=== PATIENT | female | born 1940 | race Caucasian/White ===

== ENCOUNTER → 2016-04-30 | Outpatient (CLI) | payer MEDICARE, BC ==
[2015-02-21 11:00] VITALS: BP 146/66
[~2016-04-30] MED LIST: ATOR20TA58 PO; CHOL10003 PO; CYCL5TAB PO; Cyclobenzaprine Hcl PO; HYDR-2762 PO; IOHEXOL 180 MG/ML 10 ML VIAL. ONE; LEVO750T31 PO; LIDO700A4 TP; LISI10TA2 PO; METH5TAB2 PO; METO-269 PO; METO10TA81 PO; OMEP40CA5 PO; OXYC10TA32 PO; Oxycodone Hcl/Acetaminophen PO; SENN1TAB29 PO; SERT25TA4 PO; ZOLP5TAB4 PO; methylPREDNISolone ACETATE 40 MG/ML VIAL. ONE; methylPREDNISolone ACETATE 80 MG/ML VIAL. ONE
--- NOTE | 2016-05-01 00:14 | PAIN ---
DATE OF SERVICE: 04/30/2016 DIAGNOSES: Lumbar radiculopathy with lumbar degenerative disk disease. HISTORY OF PRESENT ILLNESS: This patient is a 76-year-old female who returns for followup status post lumbar epidural steroid injection x 1. The patient reports she did very well, this was on 04/05/2016, with about 50% improvement and her legs are doing much better, but she still has some pain in the low back itself. The patient reports no new motor or sensory deficits, no new bowel or bladder incontinence. She is increasing her activity with much greater ease and comfort, she is sleeping better at night and feels significantly improved, although still some pain left, about 4 on a scale of 10, describes it as an irritable pain that is irritating in the low back with aching and dull sensation as well as. Occasional radiation to the lower extremities, mostly in the lateral anterior thighs, but again only occasionally. PHYSICAL EXAMINATION: VITAL SIGNS: The patient's blood pressure is 142/67, pulse 72, respirations 18, temperature 97.2 degrees Fahrenheit, height is 5 feet 7 inches, weight is 164 pounds. GENERAL: The patient is awake, alert, oriented, appropriate, very pleasant demeanor. HEENT: Head shows normocephalic, atraumatic. Extraocular movements are intact and symmetrical. Oral cavity, mucous membranes are moist and pink. Dentition is intact. NECK: Shows anterior throat supple without palpable lymphadenopathy noted. Swallow reflex is symmetrical. Neck shows full rotation and motion of cervical spine, both laterally as well as extension and flexion without significant difficulty. CHEST: Shows normal on inspection. Breath sounds are clear to auscultation bilaterally. HEART: Shows S1 and S2 clear. ABDOMEN: Soft, nontender, nondistended. No palpable organomegaly. No rebound or guarding demonstrated. BACK: Shows spine grossly midline. Slight exaggeration of thoracic kyphosis but normal appearing lumbar lordotic curvature. Lumbar paraspinous muscle shows some moderate tenderness with palpation bilaterally in the lower lumbar distribution, but only diffusely in the paraspinous musculature itself without radiation. No tenderness over the spinous processes, sacrum or sacroiliac regions with palpation. The patient shows good rotation and motion of lumbar spine, both laterally greater than 10 degrees right ____ as well as extension greater than 10 degrees, forward flexion 45 degrees without difficulty. EXTREMITIES: Lower extremities show deep tendon reflexes 1+ in the patellar and tendo calcaneus tendons are equal. Motor exam is strong with 5/5 dorsiflexion, extension, quadriceps and hamstring flexion and symmetrical. PLAN: Options were discussed with the patient at this time. The patient's old chart was reviewed as her current medication regimen and updated. Current review of systems updated today as well. We will plan on a second lumbar epidural steroid injection today with fluoroscopic guidance. Risks were again discussed including, but not limited to bleeding, infection, possibility of epidural hematoma and subsequent neurologic compromise, dural puncture, headaches, spinal cord and/or nerve damage, side effects of steroid medication and poor results regarding pain control. The patient understands and wishes to proceed. The patient will return to clinic in approximately 2 weeks for followup. She was counseled as to return appointment, activity level and side effects to be aware of. DIAGNOSIS: Lumbar radiculopathy with lumbar degenerative disk disease. PROCEDURES: Lumbar epidural steroid injection, translaminar approach at the L4-L5 level with fluoroscopic guidance under sterile prep and drape using local anesthetic. MEDICATIONS INJECTED: Depo-Medrol 120 mg plus 10 mL of preservative-free normal saline and 2 mL of Isovue contrast. CONDITION AT DISCHARGE: Stable. The patient tolerated the procedure well, had no complications. KACEY ALBERT MD DR: SALVATORE/randall JOB#: [id number] / [id number]
== END | disposition home or self-care (01) ==
LOC: PNCL 08:39
PROVIDERS: ATTEND Anesthesiology
DX: M51.16 Intervertebral disc disorders with radiculopathy, lumbar region (principal)
CPT/HCPCS: 62323; J1030; J1040

== ENCOUNTER → 2016-05-16 | Outpatient (CLI) | payer MEDICARE, BC ==
[2015-02-21 11:00] VITALS: BP 146/66
[~2016-05-16] MED LIST changes: +MELO-156 PO
--- NOTE | 2016-05-17 12:02 | PAIN ---
DATE OF SERVICE: 05/16/2016 DIAGNOSES: Lumbar radiculopathy with lumbar degenerative disk disease. HISTORY OF PRESENT ILLNESS: The patient is a 76-year-old female who returns for followup status post lumbar epidural steroid injection x 2. The patient reports about 50% improvement overall in the low back and bilateral lower extremities, somewhat more on the left leg today, but this can be both legs. The patient reports it is aching and dull pain much better after the last injection on 04/30/2016, but still having some significant pain across the low back into the lower extremities. The patient reports 4-5 on a scale of 10 at night and is a 0 on a scale of 10 currently. The patient reports it is dull and aching, again without radiation to posterior gluteus, posterior lateral thigh, lateral anterior thighs slightly more on the left currently than the right, but present bilaterally. PHYSICAL EXAMINATION: VITAL SIGNS: The patient's blood pressure 130/62, pulse 62, respirations 18, temperature 98.2 degrees Fahrenheit, weight is 173 pounds. GENERAL: The patient is awake, alert, oriented, appropriate, very pleasant demeanor. HEENT: Head shows normocephalic, atraumatic. Extraocular movements are intact and symmetrical. Oral cavity shows mucous membranes moist and pink. Dentition is intact. NECK: Shows anterior throat supple without palpable lymphadenopathy noted. Swallow reflex is symmetrical. Neck shows full rotational motion of the cervical spine without difficulty or tenderness. CHEST: Shows normal on inspection. Breath sounds clear to auscultation bilaterally. HEART: Shows S1 and S2 clear. ABDOMEN: Obese, soft, nontender, nondistended. No palpable organomegaly is noted. No rebound or guarding demonstrated. BACK: Shows spine grossly midline. Slight exaggeration of thoracic kyphosis, normal-appearing lordotic curvature of the lumbar spine. Lumbar paraspinous musculature is very firm and moderately tender throughout the upper, middle and lower distribution, but is well demarcated and symmetrical without evidence of atrophy, hypertrophy without trigger points, without radiation of pain. The patient shows good rotational motion, both laterally as well as extension and flexion without significant pain reported. No tenderness over the sacrum and sacroiliac regions with palpation. Lower extremities show deep tendon reflexes at 1+ in the patellar and tendo calcaneus tendons are symmetrical. Motor exam is strong with dorsiflexion, extension, quadriceps and hamstring flexion rated 5/5 and equal. Peripheral pulses are 1+ posterior tibial and dorsalis pedis pulses. No peripheral edema is noted bilaterally. Options were discussed with the patient and the patient's old chart was reviewed as her current medication regimen updated. Current review of systems updated today as well. We will proceed with a third lumbar epidural steroid injection today with fluoroscopic guidance. Risks were again discussed including, but not limited to bleeding, infection, possibility of epidural hematoma, subsequent neurologic compromise, dural puncture, headaches, spinal cord and/or nerve damage, side effects of steroid medication and poor results regarding pain control. The patient understands and wishes to proceed. The patient will return to clinic in approximately 2 weeks for followup. He was counseled on return appointment, activity level and side effects to be aware of. KACEY ALBERT MD DR: SALVATORE/randall JOB#: [id number] / [id number]
== END | disposition home or self-care (01) ==
LOC: PNCL 09:46
PROVIDERS: ATTEND Anesthesiology
DX: M51.16 Intervertebral disc disorders with radiculopathy, lumbar region (principal); E78.00 Pure hypercholesterolemia, unspecified; I10 Essential (primary) hypertension; Z90.49 Acquired absence of other specified parts of digestive tract; Z90.710 Acquired absence of both cervix and uterus; M19.90 Unspecified osteoarthritis, unspecified site; E11.9 Type 2 diabetes mellitus without complications; F17.200 Nicotine dependence, unspecified, uncomplicated
CPT/HCPCS: 62323; J1030; J1040

== ENCOUNTER 2016-06-24 21:11 | Emergency (ER) | payer MEDICARE, BC ==
[~2016-06-24] VITALS: Ht 160 cm; Wt 77.1 kg
[~2016-06-24 21:11] MED LIST changes: -IOHEXOL 180 MG/ML 10 ML VIAL. ONE; -ZOLP5TAB4 PO; +ZOLP5TAB5 PO; -methylPREDNISolone ACETATE 40 MG/ML VIAL. ONE; -methylPREDNISolone ACETATE 80 MG/ML VIAL. ONE
[2016-06-24 21:17] VITALS: BP 145/70
[2016-06-24 21:58] LABS: BASO % 0 % (0-3); EOS % 1 % (0-3); HEMATOCRIT 34.7 % (36.0-47.0); HEMOGLOBIN 11.6 g/dL (12.0-15.5); LYMPH # 1.7 x10^3/uL (1.0-4.8); LYMPH % 34 % (24-48); MEAN CORPUSCULAR HEMOGLOBIN 29 pg (25-35); MEAN CORPUSCULAR HGB CONC 34 g/dL (31-37); MEAN CORPUSCULAR VOLUME 87 fL (79-100); MONO % 7 % (0-9); NEUT % 57 % (31-73); PLATELET COUNT 199 x10^3/uL (140-400); RED BLOOD COUNT 3.98 x10^6/uL (3.50-5.40); RED CELL DISTRIBUTION WIDTH 16.5 % (11.5-14.5); WHITE BLOOD COUNT 4.9 x10^3/uL (4.0-11.0)
[2016-06-24 22:09] LABS: CALCIUM 9.9 mg/dL (8.5-10.1); CREATININE 0.8 mg/dL (0.6-1.0); GFR 69.7
[2016-06-24 22:14] LABS: ALBUMIN 3.3 g/dL (3.4-5.0); TOTAL BILIRUBIN 0.4 mg/dL (0.2-1.0); TOTAL PROTEIN 6.7 g/dL (6.4-8.2)
--- NOTE | 2016-06-24 23:18 | RAD ---
Right lower extremity venous Doppler: Reason for examination: Right lower leg pain with swelling. The right lower extremity venous system was evaluated from the common femoral and greater saphenous veins distally to the calf veins with grayscale imaging, color flow imaging and spectral analysis. There is partial compressibility of 1 of the peroneal veins distally suggesting nonocclusive thrombus. The remaining deep venous system showed no deep venous thrombosis. Note was made of a 3.8 x 3.1 x 1.2 centimeter fluid collection posterior to the knee probably representing a popliteal cyst. Impression: Partial nonocclusive thrombus in 1 of the distal peroneal veins. No other evidence of deep venous thrombosis. 3.8 x 03.1 x 1.2 centimeter fluid collection behind the knee probably representing a popliteal cyst. Electronically signed by: Brenna Sweeney MD (Jun 24, 2016 23:16:23)
--- NOTE | 2016-06-24 23:45 | PHYS DOC ---
Past Medical History Past Medical History: Cancer, Other Additional Past Medical Histor: Diabetic"diet controlled,"Hx Lung CA. Past Surgical History: Appendectomy, Cholecystectomy, Hysterectomy, Other Additional Past Surgical Histo: EGD,Lobe of R)lung removed for CA,Bilat knee replacement Alcohol Use: None Drug Use: None Adult General Chief Complaint Chief Complaint: LOWER EXTREMITY SWELLING HPI HPI Patient is a 76 year old female who complains of swelling of the right foot and ankle for about 5 days. She's never had this before. She did not injure her foot or ankle. She has no history of a blood clot. She can't think of anything that might have caused this. She saw her primary care physician who ordered a venous Doppler which is scheduled for Saturday that she does not want to wait until then, her swelling is bothering her. It feels like fluid sloshing around in her ankle. She's had no fever or chills. She has no history of gout. PCP Dr. Vincent Review of Systems Review of Systems Constitutional: Denies fever or chills [] Eyes: Denies change in visual acuity, redness, or eye pain [] HENT: Denies nasal congestion or sore throat [] Respiratory: Denies cough or shortness of breath [] Cardiovascular: Denies chest pain GI: Denies abdominal pain, nausea, vomiting, bloody stools or diarrhea [] : Denies dysuria or hematuria [] Musculoskeletal: Denies back pain or joint pain [] Integument: Denies rash or skin lesions [] Neurologic: Denies headache, focal weakness or sensory changes [] Current Medications Current Medications Current Medications Medications (Trade) Dose Ordered Sig/Silvio Start Time Stop Time Status Last Admin Dose Admin Rivaroxaban (Xarelto) 15 mg 1X ONCE 06/25/16 00:00 06/25/16 00:01 DC 06/25/16 00:05 15 MG Allergies Allergies Allergies Coded Allergies Type Severity Reaction Last Updated Verified Penicillins Allergy Intermediate 11/25/13 Yes tramadol Allergy Intermediate Tolerates Lortab/OxyContin at home 02/19/15 Yes Physical Exam Physical Exam Constitutional: Well developed, well nourished, no acute distress, non-toxic appearance. [] HENT: Normocephalic, atraumatic, bilateral external ears normal, nose normal. [ ] Eyes: conjunctiva normal, no discharge. [] Neck: Normal range of motion, no stridor. [] Cardiovascular:Heart rate regular rhythm, no murmur [] Lungs & Thorax: Bilateral breath sounds clear to auscultation [] Skin: Warm, dry, no erythema, no rash. [] Extremities: Left lower leg, ankle and foot unremarkable with no swelling. Right lower leg with no swelling or tenderness to palpation. Right ankle has a mild amount of swelling on the medial and lateral aspect. Mild swelling of the dorsum of the right foot. Skin color is normal without redness or bruising. No warmth. Neurologic: Alert and oriented X 3, normal motor function, normal sensory function, no focal deficits noted. [] Current Patient Data Vital Signs Vital Signs Date Time Temp Pulse Resp B/P Pulse Ox O2 Delivery O2 Flow Rate FiO2 06/24/16 21:17 99.6 83 16 145/70 93 Room Air 99.6 Lab Values Laboratory Tests Test 06/24/16 21:35 White Blood Count 4.9x10^3/uL (4.0-11.0) Red Blood Count 3.98x10^6/uL (3.50-5.40) Hemoglobin 11.6g/dL (12.0-15.5) L Hematocrit 34.7% (36.0-47.0) L Mean Corpuscular Volume 87fL (79-100) Mean Corpuscular Hemoglobin 29pg (25-35) Mean Corpuscular Hemoglobin Concent 34g/dL (31-37) Red Cell Distribution Width 16.5% (11.5-14.5) H Platelet Count 199x10^3/uL (140-400) Neutrophils (%) (Auto) 57% (31-73) Lymphocytes (%) (Auto) 34% (24-48) Monocytes (%) (Auto) 7% (0-9) Eosinophils (%) (Auto) 1% (0-3) Basophils (%) (Auto) 0% (0-3) Neutrophils # (Auto) 2.8x10^3uL (1.8-7.7) Lymphocytes # (Auto) 1.7x10^3/uL (1.0-4.8) Monocytes # (Auto) 0.4x10^3/uL (0.0-1.1) Eosinophils # (Auto) 0.1x10^3/uL (0.0-0.7) Basophils # (Auto) 0.0x10^3/uL (0.0-0.2) Erythrocyte Sedimentation Rate 22 (0-25) Sodium Level 144mmol/L (136-145) Potassium Level 4.0mmol/L (3.5-5.1) Chloride Level 108mmol/L (98-107) H Carbon Dioxide Level 25mmol/L (21-32) Anion Gap 11 (6-14) Blood Urea Nitrogen 13mg/dL (7-20) Creatinine 0.8mg/dL (0.6-1.0) Estimated GFR (Cockcroft-Gault) 69.7 BUN/Creatinine Ratio 16 (6-20) Glucose Level 115mg/dL (70-99) H Calcium Level 9.9mg/dL (8.5-10.1) Total Bilirubin 0.4mg/dL (0.2-1.0) Aspartate Amino Transferase (AST) 18U/L (15-37) Alanine Aminotransferase (ALT) 28U/L (14-59) Alkaline Phosphatase 84U/L (46-116) HZ-Giw-F-Type Natriuretic Peptide 345pg/mL (0-449) Total Protein 6.7g/dL (6.4-8.2) Albumin 3.3g/dL (3.4-5.0) L Albumin/Globulin Ratio 1.0 (1.0-1.7) Laboratory Tests 06/24/16 21:35 Laboratory Tests 06/24/16 21:35 EKG EKG 12-lead EKG read by me. Sinus rhythm. Heart rate 70. There are no acute ST or T wave changes indicative of ischemia or infarction. No STEMI. 8[] Radiology/Procedures Radiology/Procedures Venous Doppler right lower extremity read by the radiologist. Partial nonocclusive thrombus in one of the distal peroneal veins, no other evidence of DVT. [] Course & Med Decision Making Course & Med Decision Making Pertinent Labs and Imaging studies reviewed. (See chart for details) 76-year-old female presents with a several day history of right foot and ankle swelling. Evaluation does show a partially occluding thrombus in one of her right calf veins. She has no history of DVT in the past. I discussed the case with Dr. Gavin, taking calls for Dr. Vincent, and he recommended to start the patient on Xarelto. I discussed this with the patient and she is agreeable. She was given her first dose here in the ED and I prescribed a starter pack where she will start tomorrow morning. She is to follow up for recheck in the office in the next week or so. Note that I was not able to prescribe a starter pack through the prescription attached to the discharge instructions so I hand wrote a prescription for Xarelto starter pack, 15 mg twice a day for 21 days followed by 20 mg once a day and explained this dosing to the patient. [] Dragon Disclaimer Dragon Disclaimer This electronic medical record was generated, in whole or in part, using a voice recognition dictation system. Departure Departure Impression: Primary Impression: Deep vein thrombosis (DVT) of right lower extremity Disposition: 01 HOME, SELF-CARE Condition: STABLE Referrals: SRIKANTH VINCENT MD (PCP) Patient Instructions: Deep Vein Thrombosis Additional Instructions: Doppler of the right leg showed that you do have a small blood clot in one vein of the right leg that does not completely blocked the vein. I discussed with Dr. Gavin and he recommended that we start you on Xarelto, which is a blood thinner that we use for blood clots in the vein. You had your first dose here in the emergency department and your next dose is due 12 hours later. Follow the instructions on the starter pack. Call tomorrow for an appointment in the next 1-2 weeks to follow up and recheck with Dr. Vincent. Elevate your foot and leg when possible for swelling. GISELLE JOHNSON MD Jun 24, 2016 23:45
[2016-06-25] MEDS ORDERED: RIVAROXABAN 15 MG TABLET. PO ONE
--- NOTE | 2016-06-25 06:33 | EKG ---
[facility] [address] [place] [address] Test Date: 2016-06-24 Test Time: 21:48:28 Pat Name: IZABELLA BACON Department: Room: Gender: F Machine Dyer: : 1940 Requested By: GISELLE JOHNSON Order Number: [id number] Reading MD: Measurements Intervals [place] Rate: 70 P: 46 [place]: 204 QRS: 39 QRSD: 86 T: 15 QT: 374 QTc: 407 Interpretive Statements SINUS RHYTHM QRS(T) CONTOUR ABNORMALITY CONSIDER ANTEROSEPTAL MYOCARDIAL DAMAGE POSSIBLY ABNORMAL ECG RI6.01 No previous ECG available for comparison
== END 2016-06-25 00:16 | disposition home or self-care (01) ==
LOC: ER 21:11
DX: I82.401 Acute embolism and thrombosis of unspecified deep veins of right lower extremity (principal); E11.9 Type 2 diabetes mellitus without complications; Z96.653 Presence of artificial knee joint, bilateral; Z90.710 Acquired absence of both cervix and uterus; Z90.49 Acquired absence of other specified parts of digestive tract; Z79.01 Long term (current) use of anticoagulants; Z88.0 Allergy status to penicillin; Z88.6 Allergy status to analgesic agent
CPT/HCPCS: 36415; 80053; 83880; 85027; 85651; 93005; 93971; 99285-25

== ENCOUNTER → 2016-11-07 | Outpatient (CLI) | payer MEDICARE, BC ==
[~2016-11-07] MED LIST changes: -MELO-156 PO; +MELO7.5T29 PO; -OXYC10TA32 PO; +OXYC10TA45 PO
--- NOTE | 2016-11-07 13:58 | KCIC ---
Single view pelvis and two-view right hip dated 11/07/2016. No comparison available. Clinical indication: Pain. FINDINGS: Single AP view pelvis shows normal bony alignment. No displaced fracture. Mild hypertrophic change at both hip joints. Mild degenerative change of the bilateral SI joint and pubic symphysis. 2 views of right hip show normal bony alignment. No displaced fracture. No periostitis or bone destruction. Mild degenerative change of the right hip joint. IMPRESSION: 1. No acute radiographic abnormality. 2. Degenerative changes as described above. Electronically signed by: Dayron Shields MD (11/07/2016 1:55 PM) [facility]
== END | disposition home or self-care (01) ==
LOC: KCIC 12:47
PROVIDERS: ATTEND Family Medicine
DX: M16.11 Unilateral primary osteoarthritis, right hip (principal)
CPT/HCPCS: 73502

== ENCOUNTER → 2016-11-16 | Outpatient (CLI) | payer MEDICARE, BC ==
--- NOTE | 2016-11-16 13:55 | RAD ---
Indication follow-up. Grayscale color Doppler and spectral imaging was performed. Examination was targeted to the veins of the right lower extremity. Note is made of a previous examination 06/24/2016 definite demonstrating some clot in the calf. The common femoral, femoral and popliteal vessels appear normal. No thrombus was seen. The calf veins appeared normal on today's examination and no clot was seen in the peroneal vein on today's study. IMPRESSION: Negative right lower extremity venous analysis for DVT
== END | disposition home or self-care (01) ==
LOC: US 07:53
PROVIDERS: ATTEND Family Medicine
DX: I82.4Z1 Acute embolism and thrombosis of unspecified deep veins of right distal lower extremity (principal)
CPT/HCPCS: 93971

== ENCOUNTER → 2017-03-04 | Outpatient (CLI) | payer MEDICARE, BC ==
[~2017-03-04] MED LIST changes: +IOHEXOL 180 MG/ML 10 ML VIAL. ONE; +methylPREDNISolone ACETATE 40 MG/ML VIAL. ONE; +methylPREDNISolone ACETATE 80 MG/ML VIAL. ONE
--- NOTE | 2017-03-04 17:16 | PAIN ---
DATE OF SERVICE: 03/04/2017 DIAGNOSIS: Lumbar radiculopathy with lumbar degenerative disk disease. HISTORY OF PRESENT ILLNESS: The patient is a 77-year-old female who returns for followup status post lumbar epidural steroid injection x 1 on 02/13/2017. The patient did very well, about 70% improvement in the low back and bilateral lower extremities. The patient reports her left leg is still painful with some pain still in the low back radiating to the posterior gluteus, posterior lateral thigh, lateral anterior thigh and medial thigh on the left side, worse with walking, standing, changing positions, but better with sitting down or lying down. The patient reports it has been awakening her from sleep over the past few days, although initially was doing very well. Now, she has to reposition or takes pain medication, get out of bed, she is usually able to get back to sleep though. The patient reports the pain is a 7 on a scale of 10 at its worst, 5 on average, 2 at its least and is a 5 today. The patient reports it is shooting and becoming more severe in the left leg and low back and is off and on in intensity. PHYSICAL EXAMINATION: VITAL SIGNS: Today, the patient's blood pressure is 144/66, pulse 59, respirations are 18, temperature ____ degrees Fahrenheit. Height is 5 feet 3 inches, weighs 170 pounds. GENERAL: The patient is awake, alert, oriented, appropriate, very pleasant demeanor. HEENT: Head shows normocephalic, atraumatic. Extraocular movements are intact and symmetrical. Oral cavity: Mucous membranes moist and pink. Dentition is intact. NECK: Shows anterior throat supple without palpable lymphadenopathy noted. Swallow reflex is symmetrical. CHEST: Shows normal on inspection. Breath sounds are clear to auscultation bilaterally. HEART: Shows S1, S2 clear. No murmurs auscultated. ABDOMEN: Soft, nontender, nondistended. No palpable organomegaly is noted. No rebound or guarding demonstrated. BACK: Shows spine grossly in the midline. Normal appearing thoracic kyphosis and lumbar lordotic curvature. Lumbar paraspinous muscle shows symmetrical on inspection, with palpation shows some moderate tenderness bilaterally, but only in the middle and lower distribution of paraspinous muscles, only diffusely without radiation, without atrophy or hypertrophy. EXTREMITIES: The patient's lower extremities show deep tendon reflexes at 1+ in the patellar and tendo calcaneus tendons are equal. Motor exam is strong with 5/5 dorsiflexion, extension, quadriceps and hamstring flexion and symmetrical as well. Peripheral pulses are 1+ posterior tibial bilaterally. No peripheral edema is noted. Options were discussed with the patient. The patient's old chart was reviewed as her current medication regimen updated. Current review of systems updated today as well. We will proceed with a second in the series of lumbar epidural steroid injection today with fluoroscopic guidance. Risks were again discussed including, but not limited to bleeding, infection, possibility of epidural hematoma, subsequent neurologic compromise, dural puncture, headaches, spinal cord and/or nerve damage, side effects of steroid medication and poor results regarding pain control. The patient understands and wished to proceed. The patient will return to clinic in approximately 2 weeks for followup, was counseled on return appointment, activity level and side effects to be aware of. DIAGNOSIS: Lumbar radiculopathy with lumbar degenerative disk disease. PROCEDURES: Lumbar epidural steroid injection in translaminar approach at L4-L5 level using C-arm fluoroscopic guidance under sterile prep and drape using local anesthetic. MEDICATION INJECTED: A total of 120 mg Depo-Medrol plus 10 mL of preservative-free normal saline and 2 mL of Isovue for contrast. CONDITION AT DISCHARGE: Stable. The patient tolerated the procedure well, had no complications. KACEY ALBERT MD DR: SALVATORE/randall JOB#: [id number] / [id number]
== END | disposition home or self-care (01) ==
LOC: PNCL 08:04
PROVIDERS: ATTEND Anesthesiology
DX: M51.16 Intervertebral disc disorders with radiculopathy, lumbar region (principal); E78.00 Pure hypercholesterolemia, unspecified; M19.91 Primary osteoarthritis, unspecified site; E11.9 Type 2 diabetes mellitus without complications; F17.200 Nicotine dependence, unspecified, uncomplicated; Z98.890 Other specified postprocedural states; Z90.49 Acquired absence of other specified parts of digestive tract; Z90.710 Acquired absence of both cervix and uterus; Z88.0 Allergy status to penicillin; Z88.8 Allergy status to other drugs, medicaments and biological substances
CPT/HCPCS: 62323; J1030; J1040

== ENCOUNTER → 2017-03-18 | Outpatient (CLI) | payer MEDICARE, BC ==
--- NOTE | 2017-03-18 09:48 | PAIN ---
DATE OF SERVICE: 03/18/2017 DIAGNOSES: Lumbar radiculopathy with lumbar degenerative disk disease. HISTORY OF PRESENT ILLNESS: The patient is a 77-year-old female who returns for followup status post lumbar epidural steroid injections x 2, last seen 03/04/2017. The patient did very well initially, but the pain has returned. The patient had a 100% improvement for a few days after the injection, then the pain returned and then it went away again over the past 2 to 3 days. She reports it is "not too bad" today, still some pain in the low back and into the left lower extremity. The patient reports it is radiating from the low back and the posterior gluteus, posterolateral thigh, lateral anterior thigh, anterior medial thigh, medial lower leg bilaterally, worse on the left than the right. The patient reports a sharp, stabbing, radiating, becoming more unbearable, severe, but is on and off in its intensity. The patient reports she has been sleeping about 2 hours at a time because the pain has been awakening her, especially when she lies on her left side. The patient reports the pain is an 8 on a scale of 10 at its worst, a 5 on average and a 3 at its least, and is 3 today. The patient reports no new motor or sensory deficits, no new bowel or bladder incontinence or other complaints. She has been increasing her activity with greater ease and comfort, again much better for a few days, then beginning to return and then getting better once again just over the past several days prior to today's visit. PHYSICAL EXAMINATION: VITAL SIGNS: The patient's blood pressure 142/70, pulse 65, respirations 18, temperature 98.3 degrees Fahrenheit, weight is 172 pounds. GENERAL: The patient is awake, alert, oriented, appropriate, very pleasant demeanor. HEENT: Head shows normocephalic, atraumatic. Extraocular movements are intact, symmetrical. Oral cavity: Mucous membranes moist and pink. Dentition is intact. NECK: Shows anterior throat supple without palpable lymphadenopathy noted. Swallow reflex symmetrical. CHEST: Shows normal on inspection. Breath sounds clear to auscultation bilaterally. HEART: Shows S1, S2 clear. No murmurs auscultated. ABDOMEN: Soft, nontender, nondistended. No palpable organomegaly is noted. No rebound or guarding demonstrated. BACK: Shows spine grossly in the midline, slight exaggeration of thoracic kyphosis, some minor flattening of lumbar lordotic curvature. Lumbar paraspinous musculature shows symmetrical on inspection without atrophy or hypertrophy. No tenderness over the spinous processes, sacrum or sacroiliac regions. EXTREMITIES: The patient's lower extremities show deep tendon reflexes at 1+ in the patellar and tendo calcaneus tendons are equal. Motor exam is strong with 5/5 dorsiflexion, extension, quadriceps and hamstring flexion and equal and symmetrical. Peripheral pulses are 1+ posterior tibial. No peripheral edema is noted. Options were discussed with the patient. The patient's old chart was reviewed as her current medication regimen updated. Current review of systems updated today as well. We will proceed with a third in the series of lumbar epidural steroid injection today with fluoroscopic guidance. Risks were discussed including but not limited to bleeding, infection, possibility of epidural hematoma, subsequent neurologic compromise, dural puncture headaches, spinal cord and/or nerve damage, side effects of steroid medication and poor results regarding pain control. The patient understands and wished to proceed. The patient will return to clinic in approximately 2 weeks for followup. She was counseled on return appointment, activity level and side effects to be aware of. DIAGNOSES: Lumbar radiculopathy with lumbar degenerative disk disease. PROCEDURE: Lumbar epidural steroid injection, translaminar approach, at the L4-L5 level using C-arm fluoroscopic guidance under sterile prep and drape using local anesthetic. MEDICATION INJECTED: A total of 120 mg Depo-Medrol plus 10 mL of preservative-free normal saline and 2 mL of Isovue for contrast. CONDITION AT DISCHARGE: Stable. The patient tolerated the procedure well, had no complications. KACEY ALBERT MD DR: SALVATORE/randall JOB#: [id number] / [id number]
== END | disposition home or self-care (01) ==
LOC: PNCL 07:56
PROVIDERS: ATTEND Anesthesiology
DX: M51.16 Intervertebral disc disorders with radiculopathy, lumbar region (principal); Z90.710 Acquired absence of both cervix and uterus; Z90.49 Acquired absence of other specified parts of digestive tract; Z88.8 Allergy status to other drugs, medicaments and biological substances; Z88.0 Allergy status to penicillin; M19.90 Unspecified osteoarthritis, unspecified site; E78.00 Pure hypercholesterolemia, unspecified; Z96.653 Presence of artificial knee joint, bilateral; I10 Essential (primary) hypertension; E11.9 Type 2 diabetes mellitus without complications; Z88.6 Allergy status to analgesic agent
CPT/HCPCS: 62323; J1030; J1040

== ENCOUNTER → 2017-04-17 | Outpatient (CLI) | payer MEDICARE, BC | END | disposition home or self-care (01) | LOC: RAD 11:50 | DX: M48.061 Spinal stenosis, lumbar region without neurogenic claudication (principal); M47.897 Other spondylosis, lumbosacral region; I70.0 Atherosclerosis of aorta; I87.8 Other specified disorders of veins | CPT/HCPCS: 72100; 73521 ==

== ENCOUNTER → 2017-05-10 | Outpatient (CLI) | payer MEDICARE, BC | END | disposition home or self-care (01) | LOC: KCIC MRI 10:35 | DX: M51.27 Other intervertebral disc displacement, lumbosacral region (principal); M47.896 Other spondylosis, lumbar region | CPT/HCPCS: 72148 ==

== ENCOUNTER → 2017-05-22 | Outpatient (CLI) | payer MEDICARE, BC | END | disposition home or self-care (01) | LOC: KCIC US 14:22 | DX: M71.21 Synovial cyst of popliteal space [Baker], right knee (principal) | CPT/HCPCS: 93971 ==

== ENCOUNTER → 2017-09-18 | Outpatient (CLI) | payer MEDICARE, BC | END | disposition home or self-care (01) | LOC: ECHO 12:16 | DX: I82.813 Embolism and thrombosis of superficial veins of lower extremities, bilateral (principal); I35.1 Nonrheumatic aortic (valve) insufficiency; I10 Essential (primary) hypertension; E11.9 Type 2 diabetes mellitus without complications; E78.5 Hyperlipidemia, unspecified | CPT/HCPCS: 93306; 93970 ==

== ENCOUNTER → 2017-11-06 | Outpatient (CLI) | payer MEDICARE, BC | END | disposition home or self-care (01) | LOC: US 10:41 | DX: I87.2 Venous insufficiency (chronic) (peripheral) (principal); I10 Essential (primary) hypertension; E11.9 Type 2 diabetes mellitus without complications; E78.5 Hyperlipidemia, unspecified; Z87.891 Personal history of nicotine dependence | CPT/HCPCS: 93970 ==

== ENCOUNTER → 2018-02-25 | Outpatient (CLI) | payer MEDICARE, BC ==
[~2018-02-25] MED LIST changes: +LIDOCAINE 1% PF 2 ML VIAL. ONE; +ONDA4TAB7 PO
--- NOTE | 2018-02-25 14:24 | PAIN ---
DATE OF SERVICE: 02/25/2018 DIAGNOSIS: Lumbar radiculopathy with lumbar degenerative disk disease. HISTORY OF PRESENT ILLNESS: The patient is a 78-year-old female who returns for followup status post lumbar epidural steroid injections x 3, last seen 03/18/2017. The patient did very well with about 100% improvement for a few months and then about an 80% improvement until about 1-2 weeks ago. The patient reports the pain has returned in her low back as it was previously, in the bilateral lower extremities mostly in the posterior gluteus, posterior thighs, lateral thighs, anterior thighs with a burning pain. It is radiating, constant now, severe, stabbing. Describes as achy, sharp and shooting, rates it a 9 on a scale of 10 at its worst, 5 on average, 5 at its least and is a 5 today. The patient reports it is worse with standing and walking. Initially, she increased her distance walking, doing activities around the house, traveling with much greater ease and comfort, now the pain has again returned, these have become more uncomfortable for her, but she is still doing well overall. The patient reports no new motor or sensory deficits, no new bowel or bladder incontinence or other complaints. PHYSICAL EXAMINATION: VITAL SIGNS: The patient's blood pressure is 125/61, pulse 66, respirations 18, temperature 98.6 degrees Fahrenheit, height is 5 feet 3 inches, weight is 173 pounds. GENERAL: The patient is awake, alert, oriented, appropriate, very pleasant demeanor. HEENT: Head shows normocephalic, atraumatic. Extraocular movements are intact and symmetrical. Oral cavity: Mucous membranes moist and pink. Dentition intact. NECK: Shows anterior throat supple without palpable lymphadenopathy noted. Swallow reflex symmetrical. CHEST: Shows normal with inspection. Breath sounds clear to auscultation bilaterally. HEART: Shows S1, S2 clear. No murmurs auscultated. ABDOMEN: Soft, nontender, nondistended. No palpable organomegaly is noted. No rebound or guarding demonstrated. BACK: Shows spine grossly in the midline. Slight exaggeration of thoracic kyphosis, some minor flattening of lumbar lordotic curvature. Lumbar paraspinous muscle shows symmetrical on inspection and with palpation shows some moderate tenderness diffusely without radiation, without trigger points. The patient has good rotational motion of lumbar spine, both laterally as well as extension and flexion without significant difficulty or pain reported. No tenderness over the sacrum or sacroiliac regions. EXTREMITIES: Lower extremities show deep tendon reflexes 1+ in the patellar and tendo-calcaneus tendons are equal. Motor exam is strong with 5/5 dorsiflexion and extension, quadriceps and hamstring flexion and symmetrical as well. Peripheral pulses are 1+ posterior tibia. No peripheral edema is noted bilaterally. Options were discussed with the patient. The patient's old chart was reviewed as her current medication regimen updated. Current review of systems updated today as well. We will proceed with lumbar epidural steroid injections, the first in this series with fluoroscopic guidance. Risks were again discussed including, but not limited to bleeding, infection, possibility of epidural hematoma, subsequent neurological compromise, dural puncture, headaches, spinal cord and/or nerve damage, side effects of steroid medication and poor results regarding pain control. The patient understands and wished to proceed. The patient will return to clinic in approximately 2 weeks for followup, was counseled as to return appointment, activity level and side effects to be aware of. DIAGNOSIS: Lumbar radiculopathy with lumbar degenerative disk disease. PROCEDURE: Lumbar epidural steroid injection, translaminar approach, L4-L5 level using C-arm fluoroscopic guidance under sterile prep and drape using local anesthetic. MEDICATION INJECTED: A total of 120 mg Depo-Medrol plus 10 mL of preservative-free normal saline and 2 mL of Isovue for contrast. CONDITION AT DISCHARGE: Stable. The patient tolerated procedure well, had no complications. KACEY ALBERT MD DR: SALVATORE/randall JOB#: [id number] / [id number]
== END | disposition home or self-care (01) ==
LOC: PNCL 13:05
PROVIDERS: ATTEND Anesthesiology
DX: M51.16 Intervertebral disc disorders with radiculopathy, lumbar region (principal); Z88.0 Allergy status to penicillin; Z88.6 Allergy status to analgesic agent
CPT/HCPCS: 62323; J1030; J1040; Q9965

== ENCOUNTER → 2018-03-10 | Outpatient (CLI) | payer MEDICARE, BC ==
[~2018-03-10] MED LIST changes: -HYDR-2762 PO; +HYDR-2765 PO; -IOHEXOL 180 MG/ML 10 ML VIAL. ONE; -LIDOCAINE 1% PF 2 ML VIAL. ONE; -OXYC10TA45 PO; +OXYC10TA46 PO; -methylPREDNISolone ACETATE 40 MG/ML VIAL. ONE; -methylPREDNISolone ACETATE 80 MG/ML VIAL. ONE
--- NOTE | 2018-03-10 17:23 | KCIC ---
Bilateral digital screening mammograms: Reason for examination: Routine screening. New baseline. Interpretation was made with the benefit of CAD. The skin and nipples show no abnormalities. No abnormal axillary lymph nodes are seen. The breast parenchyma shows scattered fibroglandular density. (Breast density: Category B.) There are no dominant masses, suspicious calcifications or architectural distortions. Some benign appearing calcifications are present. Impression: No evidence of malignancy. Recommend routine screening. BI-RADS category 2: Benign "Our facility is accredited by the [employer] Mammography [employer]." This patient's information has been entered into a reminder system for the patient to be notified with the results of her examination and a target date for the next mammogram. Electronically signed by: Lillie Sweeney MD (03/10/2018 5:19 PM) [facility] [id number]
== END | disposition home or self-care (01) ==
LOC: KCIC MAMMO 11:56
PROVIDERS: ATTEND Family Medicine
DX: Z12.31 Encounter for screening mammogram for malignant neoplasm of breast (principal)
CPT/HCPCS: 77067

== ENCOUNTER → 2018-03-21 | Outpatient (CLI) | payer MEDICARE, BC ==
[~2018-03-21] MED LIST changes: +IOHEXOL 180 MG/ML 10 ML VIAL. ONE; +methylPREDNISolone ACETATE 40 MG/ML VIAL. ONE; +methylPREDNISolone ACETATE 80 MG/ML VIAL. ONE
--- NOTE | 2018-03-21 16:31 | PAIN ---
DATE OF SERVICE: 03/21/2018 DIAGNOSES: Lumbar radiculopathy with lumbar degenerative disk disease. HISTORY OF PRESENT ILLNESS: The patient is a 78-year-old female who returns for followup status post lumbar epidural steroid injection x 1. This series, the patient reports she did very well with about a 75% improvement, near 80% improvement initially. The pain has been returning now but on and off in intensity in the low back and the bilateral lower extremities. The patient reports right equal to left essentially. The patient reports the pain is now becoming more noticeable. It is a stabbing pain in the low back with tingling pain in the leg, sharp, radiating to bilateral posterolateral, anterior thighs, anterior medial thighs, medial lower legs, posterior gluteus and posterior thighs as well. The patient reports it is a 7 on a scale of 10 at its worse, 5 on average, 2 at its least and is a 5 today. The patient reports it occasionally wakes her from sleep, but not every night. Most nights, she sleeps fairly well. The patient reports no new motor or sensory deficits, no new bowel or bladder incontinence. She was initially increasing her distance walking, doing activities at home and traveling with greater ease and comfort. The patient reports no new motor or sensory deficits, no new bowel or bladder incontinence or other complaints. PHYSICAL EXAMINATION: VITAL SIGNS: Today, the patient's blood pressure 120/50, pulse 52, respirations are 18, temperature is 98.2 degrees Fahrenheit, height is 5 feet 3 inches, weight 170 pounds. GENERAL: The patient is awake, alert, oriented, appropriate, very pleasant demeanor. HEENT: Head shows normocephalic, atraumatic. Extraocular movements are intact and symmetrical. Oral cavity: Mucous membranes moist and pink. Dentition is intact. NECK: Shows anterior throat supple without palpable lymphadenopathy noted. Swallow reflex is symmetrical. CHEST: Shows normal on inspection. Breath sounds are clear to auscultation bilaterally. HEART: Shows S1, S2 clear. No murmurs auscultated. BACK: Shows spine grossly in the midline. Slight exaggeration of thoracic kyphosis and mild flattening of lumbar lordotic curvature. The patient's lumbar paraspinous musculature shows symmetrical on inspection, on palpation shows some moderate tenderness, but only diffusely with palpation. Good rotational motion, however, both laterally as well as extension and flexion without significant difficulty. EXTREMITIES: The patient's lower extremities show deep tendon reflexes at 1+ in the patella and tendo calcaneus tendons. Motor exam is strong with 5/5 dorsiflexion, extension, quadriceps and hamstring flexion is symmetrical. Peripheral pulses are 1+ posterior tibia. No peripheral edema is noted. Options were discussed with the patient. The patient's old chart was reviewed as her current medication regimen and updated. Current review of systems is updated today as well. We will proceed with a second in the series of lumbar epidural steroid injection today with fluoroscopic guidance. Risks were again discussed including, but not limited to bleeding, infection, possibility of epidural hematoma, subsequent neurological compromise, dural puncture headache, spinal cord and/or nerve damage, side effects of steroid medication and poor results regarding pain control. The patient understands and wished to proceed. The patient to return to clinic in approximately 2 weeks for followup. She was counseled as to her return appointment, activity level and side effects to be aware of. DIAGNOSES: Lumbar radiculopathy with lumbar degenerative disk disease. PROCEDURE: Lumbar epidural steroid injection, translaminar approach L4-L5 level using C-arm fluoroscopic guidance under sterile prep and drape using local anesthetic. MEDICATION INJECTED: A total of 120 mg Depo-Medrol plus 10 mL of preservative-free normal saline, 2 mL of Isovue for contrast. CONDITION AT DISCHARGE: Stable. The patient tolerated procedure well, had no complications. KACEY ALBERT MD DR: SALVATORE/randall JOB#: [id number] / [id number]
== END | disposition home or self-care (01) ==
LOC: PNCL 11:32
PROVIDERS: ATTEND Anesthesiology
DX: M51.16 Intervertebral disc disorders with radiculopathy, lumbar region (principal); Z88.0 Allergy status to penicillin; Z88.6 Allergy status to analgesic agent
CPT/HCPCS: 62323; J1030; J1040; Q9965

== ENCOUNTER → 2018-04-28 | Outpatient (CLI) | payer MEDICARE, BC ==
--- NOTE | 2018-04-28 17:54 | PAIN ---
DATE OF SERVICE: 04/28/2018 PROGRESS NOTE FOR PAIN CLINIC DIAGNOSES: Lumbar radiculopathy with lumbar degenerative disk disease. HISTORY OF PRESENT ILLNESS: The patient is a 78-year-old female who returns for followup status post lumbar epidural steroid injection x 2. The patient reports about 75% improvement overall and the first was about 80%, not quite as good as it was, but the patient reports still significant pain relief, increasing her activity with greater ease and comfort, walking for greater distances and sleeping better at night. It still awakens her sporadically from sleep at night, but not every night. The patient reports it is an 8 on a scale of 10 at its worst, anywhere from a 3 to an 8 on average and 1 at its least and is 5 today. The patient reports it is aching, sharp, shooting in the low back into the lower extremities bilaterally, posterior gluteus, posterior lateral thighs, lateral anterior thighs and medial lower legs. The patient reports on and off in intensity, better with sitting or lying down, worse with standing or walking. The patient reports no new motor or sensory deficits, no new bowel or bladder incontinence or other complaints. PHYSICAL EXAMINATION: VITAL SIGNS: The patient's blood pressure is 137/66, pulse 61, respirations 16, temperature 98.4 degrees Fahrenheit, height is 5 feet 3 inches and weight is 170 pounds. GENERAL: The patient is awake, alert, oriented, appropriate, very pleasant demeanor. HEENT: Head is normocephalic, atraumatic. Extraocular movements intact and symmetrical. Oral cavity: Mucous membranes moist and pink. Dentition is intact. NECK: Shows anterior throat supple without palpable lymphadenopathy noted. Swallow reflex symmetrical. LUNGS: Normal on inspection. Breath sounds clear to auscultation bilaterally. HEART: Shows S1, S2 clear. No murmurs auscultated. ABDOMEN: Soft, nontender, nondistended. No palpable organomegaly is noted. No rebound or guarding demonstrated. BACK: The patient's back shows spine grossly in the midline, normal appearing cervical lordotic curvature, increased thoracic kyphosis and some minor flattening of lumbar lordotic curvature. Lumbar paraspinous muscle shows symmetrical on inspection. On palpation, it shows some moderate tenderness diffusely bilaterally in the paraspinous musculature, but only diffusely without radiation. The patient has good rotational motion of lumbar spine without significant pain reported. EXTREMITIES: Lower extremities show deep tendon reflexes 1+ in the patellar and tendo calcaneus tendons. Motor exam is strong with 5/5 dorsiflexion, extension, quadriceps and hamstring flexion equal. Peripheral pulses are 1+ posterior tibial. No peripheral edema is noted. PLAN: Options were discussed with the patient. The patient's old chart was reviewed as her current medication regimen updated. Current review of systems updated today as well. We will proceed with a third in the series of lumbar epidural steroid injection today with fluoroscopic guidance. Risks were again discussed including, but not limited to bleeding, infection, possibility of epidural hematoma, subsequent neurologic compromise, dural puncture, headaches, spinal cord and/or nerve damage, side effects of steroid medication and poor results regarding pain control. The patient understands and wished to proceed. The patient will return to clinic in approximately 2 weeks for followup, was counseled as to return appointment, activity level and side effects to be aware of. DIAGNOSES: Lumbar radiculopathy with lumbar degenerative disk disease. PROCEDURE: Lumbar epidural steroid injection, translaminar approach at L4-L5 level using C-arm fluoroscopic guidance under sterile prep and drape using local anesthetic. MEDICATION INJECTED: A total of 120 mg Depo-Medrol plus 10 mL of preservative-free normal saline and 2 mL of Isovue for contrast. CONDITION AT DISCHARGE: Stable. The patient tolerated the procedure well, had no complications. KACEY ALBERT MD DR: SALVATORE/randall JOB#: [id number] / [id number]
== END | disposition home or self-care (01) ==
LOC: PNCL 13:28
PROVIDERS: ATTEND Anesthesiology
DX: M51.16 Intervertebral disc disorders with radiculopathy, lumbar region (principal); Z88.0 Allergy status to penicillin; Z88.5 Allergy status to narcotic agent
CPT/HCPCS: 62323; J1030; J1040; Q9965

== ENCOUNTER → 2018-12-09 | Outpatient (CLI) | payer MEDICARE, BC ==
--- NOTE | 2018-12-09 09:58 | PAIN ---
DATE OF SERVICE: 12/09/2018 PROGRESS NOTE FOR PAIN CLINIC DIAGNOSES: Lumbar radiculopathy with lumbar degenerative disk disease. HISTORY OF PRESENT ILLNESS: The patient is a 78-year-old female who returns for followup status post lumbar epidural steroid injection x 3. Most recently on 05/06/2018, the patient did very well, reports about a 90% improvement overall until about one week ago, the pain began to return in the low back bilaterally and into the right posterior gluteus, posterolateral thigh, lateral anterior thigh across the low back. The patient reports it is a 6 on a scale of 10 at its worst, 4 on average, 2 at its least and is a 4 today. The patient reports it is aching type, shooting, tingling, burning keeping her awake at night over the past week. No new motor or sensory deficits. No new bowel or bladder incontinence and no recent injury. The patient reports it is much better with sitting and lying down, does awaken her from sleep. The patient reports no new other changes. PHYSICAL EXAMINATION: VITAL SIGNS: The patient's blood pressure 159/74, pulse 57, respirations 18, temperature 98.5 degrees Fahrenheit, height is 5 feet 3 inches, weight is 169 pounds. GENERAL: The patient is awake, alert, oriented, appropriate, very pleasant demeanor. HEENT: Head shows normocephalic, atraumatic. Extraocular movements are intact and symmetrical. Oral cavity: Mucous membranes moist and pink. Dentition is intact. NECK: Shows anterior throat supple without palpable lymphadenopathy noted. Swallow reflex symmetrical. CHEST: Shows normal on inspection. Breath sounds clear to auscultation bilaterally. HEART: Shows S1, S2 clear. No murmurs auscultated. ABDOMEN: Soft, nontender, nondistended. No palpable organomegaly is noted. No rebound or guarding demonstrated. BACK: Shows spine grossly in the midline, slight exaggerated thoracic kyphosis and minor flattening of lumbar lordotic curvature. Lumbar paraspinous muscle shows symmetrical on inspection, with palpation shows some moderate tenderness diffusely, but only diffusely without radiation. EXTREMITIES: The patient's lower extremities show deep tendon reflexes 1+ in the patellar and tendocalcaneus tendons are equal. Motor exam is approximately 5 on a scale of 5 dorsiflexion, extension, quadriceps and hamstring flexion and symmetrical as well. Peripheral pulses are 1+ posterior tibia. No peripheral edema is noted bilaterally. Options were discussed with the patient. The patient's old chart was reviewed as his current medication regimen updated. Current review of systems updated today as well. We will proceed with a first in this series of lumbar epidural steroid injection today with fluoroscopic guidance. Risks were again discussed including, but not limited to bleeding, infection, possibility of epidural hematoma, subsequent neurologic compromise, dural puncture, headaches, spinal cord and/or nerve damage, side effects of steroid medication and poor results regarding pain control. The patient understands and wished to proceed. The patient will return to clinic in approximately 2 weeks for followup. She was counselled on return appointment, activity level and side effects to be aware of. DIAGNOSIS: Lumbar radiculopathy with lumbar degenerative disk disease. PROCEDURE: Lumbar epidural steroid injection, translaminar approach at the L4-L5 level using C-arm fluoroscopic guidance under sterile prep and drape using local anesthetic. MEDICATION INJECTED: The patient received a total of 120 mg Depo-Medrol plus 10 mL of preservative-free normal saline and 2 mL of contrast. CONDITION AT DISCHARGE: Stable. The patient tolerated the procedure well, had no complications. KACEY ALBERT MD DR: SALVATORE/randall JOB#: [id number] / [id number]
== END ==
LOC: PNCL 08:38
PROVIDERS: ATTEND Anesthesiology
DX: M51.16 Intervertebral disc disorders with radiculopathy, lumbar region (principal)
CPT/HCPCS: 62323; J1030; J1040; Q9965

== ENCOUNTER → 2019-01-06 | Outpatient (CLI) | payer MEDICARE, BC ==
[~2019-01-06] MED LIST changes: +OMEP40CA45 PO; -OMEP40CA5 PO
--- NOTE | 2019-01-06 12:39 | PAIN ---
DATE OF SERVICE: 01/06/2019 PROGRESS NOTE FOR PAIN CLINIC DIAGNOSES: Lumbar radiculopathy with lumbar degenerative disk disease. HISTORY OF PRESENT ILLNESS: The patient is a 78-year-old female who returns for followup status post lumbar epidural steroid injection x 1. The patient reports about 60% improvement after the last injection for the pain in the low back and right lower extremity. Still some pain in the back and into the right lower extremity radiating to the posterior lateral thigh, anterior thigh, medial thigh to the knee and into the calf at times. The patient it is worse with walking, standing, changing positions, although she has been increasing her activity significantly after her last visit with distance walking, doing activities at home and walking her dog with greater ease and comfort and even traveling with better ease and comfort as well. The patient reports no new motor or sensory deficits. She describes the pain as an 8 on a scale of 10 at its worst over the past week, 2 on average, 0 at its least and is a 2 today. The patient reports it is sharp and shooting at times, constant in the back and into the right lower extremities radiating. PHYSICAL EXAMINATION: VITAL SIGNS: The patient's blood pressure 129/65, pulse 54, respirations 18, temperature 98.3 degrees Fahrenheit, height is 5 feet 3 inches, weight is 163 pounds. GENERAL: The patient is awake, alert, oriented, appropriate, very pleasant demeanor. HEENT: Shows normocephalic, atraumatic. Extraocular movements are intact and symmetrical. Oral cavity: Mucous membranes moist and pink. Dentition is intact. NECK: Shows anterior throat supple without palpable lymphadenopathy noted. Swallow reflex symmetrical. CHEST: Shows normal on inspection. Breath sounds clear to auscultation bilaterally. HEART: Shows S1, S2 clear. ABDOMEN: Obese, soft, nontender, nondistended. BACK: Shows spine grossly in the midline, slight exaggerated thoracic kyphosis and minor flattening of lumbar lordotic curvature. Lumbar paraspinous muscle shows symmetrical on inspection, with palpation shows some moderate tenderness diffusely bilaterally, but only diffusely without radiation. The patient has good rotational motion of lumbar spine, both laterally as well as extension and flexion without difficulty. EXTREMITIES: The patient's lower extremities show deep tendon reflexes at 1+ in the patellar and tendo calcaneus tendons. Motor exam is strong with 5/5 dorsiflexion, extension, quadriceps and hamstring flexion symmetrical. Peripheral pulses are 1+ posterior tibia. No peripheral edema is noted bilaterally. PLAN: Options were discussed with the patient. The patient's old chart was reviewed as her current medication regimen updated. Current review of systems updated today as well. We will proceed with a second in a series of lumbar epidural steroid injection today with fluoroscopic guidance. Risks were again discussed including, but not limited to bleeding, infection, possibility of epidural hematoma, subsequent neurological compromise, dural puncture, headaches, spinal cord and/or nerve damage, side effects of steroid medication and poor results regarding pain control. The patient understands and wished to proceed. The patient will return to clinic in approximately 2 weeks for followup. She was counseled on return appointment, activity level and side effects to be aware of. DIAGNOSIS: Lumbar radiculopathy with lumbar degenerative disk disease. PROCEDURE: Lumbar epidural steroid injection, translaminar approach L4-L5 level using C-arm fluoroscopic guidance under sterile prep and drape using local anesthetic. MEDICATION INJECTED: A total of 120 mg Depo-Medrol plus 10 mL of preservative-free normal saline and 2 mL of contrast. CONDITION AT DISCHARGE: Stable. The patient tolerated the procedure well, had no complications. KACEY ALBERT MD DR: SALVATORE/randall JOB#: [id number] / [id number]
== END ==
LOC: PNCL 11:03
PROVIDERS: ATTEND Anesthesiology
DX: M51.16 Intervertebral disc disorders with radiculopathy, lumbar region (principal)
CPT/HCPCS: 62323; J1030; J1040; Q9965

== ENCOUNTER → 2019-01-08 | Outpatient (CLI) | payer MEDICARE, BC ==
[~2019-01-08] MED LIST changes: -IOHEXOL 180 MG/ML 10 ML VIAL. ONE; -methylPREDNISolone ACETATE 40 MG/ML VIAL. ONE; -methylPREDNISolone ACETATE 80 MG/ML VIAL. ONE
--- NOTE | 2019-01-08 15:28 | KCIC ---
MRI of the lumbar spine without contrast 01/08/2019 CLINICAL HISTORY: Low back pain which radiates down the right leg. TECHNIQUE: Unenhanced T1-weighted and T2-weighted sagittal and axial and inversion recovery sagittal images of the lumbar spine were obtained. FINDINGS: Comparison study is dated 05/10/2017. Very mild S-shaped curvature of the thoracolumbar spine is seen. Mild anterolisthesis of L4 in relation to L5 is noted. Degenerative signal changes are seen involving all of the disks of the lumbar spine. Degenerative signal changes are seen within the marrow surrounding these discs. The conus medullaris is within normal limits in morphology, position, and signal characteristics. Clumping of the nerve roots of the cauda equina is again seen suggestive of arachnoiditis. At the L1-2 and L2-3 disc spaces there are mild generalized disc bulges. Degenerative changes are seen involving the facet joints bilaterally. There is mild ligamentum flavum hypertrophy bilaterally. These findings when combined do not result in significant central spinal canal or neural foraminal stenosis. At the L3-4 disc space there is a mild to moderate generalized disc bulge. Degenerative changes are seen involving the facet joints bilaterally. There is moderate ligamentum flavum hypertrophy bilaterally. These findings when combined result in mild central spinal canal stenosis. No neural foraminal stenosis is seen. At the L4-5 disc space there is a moderate generalized disc bulge. Superimposed on this disc bulge is a central/left paracentral focal disc protrusion. This measures 3.5 mm in AP diameter. Degenerative changes are seen involving the facet joints bilaterally. There is severe ligamentum flavum hypertrophy bilaterally. These findings when combined result in moderate to severe central spinal canal stenosis. No neural foraminal stenosis is seen. At the L5-S1 disc space there is a mild generalized disc bulge. Degenerative changes are seen involving the facet joints bilaterally. There is mild to moderate ligamentum flavum hypertrophy bilaterally. These findings when combined do not result in significant central spinal canal or neural foraminal stenosis. The degenerative changes at L4-5 have progressed slightly since the previous study. IMPRESSION: The changes of degenerative disc disease are seen throughout the lumbar spine. These findings result in mild central spinal canal stenosis at L3-4 and moderate to severe central spinal canal stenosis at L4-5. No neural foraminal stenosis is seen. Findings are again seen suggestive of arachnoiditis. Electronically signed by: Pancho Diallo MD (01/08/2019 3:25 PM) [email or web address]
== END ==
LOC: KCIC MRI 12:59
PROVIDERS: ATTEND Anesthesiology
DX: M51.16 Intervertebral disc disorders with radiculopathy, lumbar region (principal)
CPT/HCPCS: 72148

== ENCOUNTER → 2019-05-07 | Outpatient (CLI) | payer MEDICARE, BC ==
--- NOTE | 2019-05-07 15:24 | KCIC ---
EXAM: CERVICAL SPINE 2-3V. HISTORY: Neck pain. COMPARISON: None. FINDINGS: Cervical alignment is maintained. No fractures are identified. Intervertebral disc heights are maintained. There is no prevertebral soft tissue swelling. 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 Facet osteoarthritis is up to moderate on the right at C5-6 and mild elsewhere. IMPRESSION: 1. Cervical facet osteoarthritis, worst on the right at C5-6. Electronically signed by: Maia Granger MD (05/07/2019 3:21 PM) [facility]
== END | disposition home or self-care (01) ==
LOC: KCIC 14:08
PROVIDERS: ATTEND Nurse Practitioner Gerontology
DX: M47.812 Spondylosis without myelopathy or radiculopathy, cervical region (principal)
CPT/HCPCS: 72040

== ENCOUNTER → 2019-06-11 | Outpatient (CLI) | payer MEDICARE, BC ==
--- NOTE | 2019-06-11 11:44 | KCIC ---
MRI Lumbar Spine without contrast History: Lumbar degenerative disc disease, chronic back pain, right radiculopathy Technique: Multiplanar, multi sequential noncontrast MR imaging was performed of the lumbar spine. Comparison: January 08, 2019 Findings: Lumbar vertebral body stature is maintained. There is grade 1 anterior spondylolisthesis L4-5. Conus terminates near the superior aspect of L2. Trace edema of the anterior corners at L3-4 is likely reactive/degenerative in etiology. There is posterior annular tear L4-5. There is again [id number] degenerative disc disease at L5-S1 and L4-5 and minimally L3-4, mild disc desiccation L2-3. Minimal L5-S1 endplate edema on the left is likely reactive/degenerative in etiology. There is very mild lumbar levoscoliosis. T12-L1: There is very shallow posterior central protrusion. Spinal canal and neural foramina are adequate. L1-L2: Neural foramina and spinal canal are adequate. L2-L3: There is mild buckling of the ligamentum flavum. Neural foramina and spinal canal are adequate. L3-L4: There is moderate buckling of the ligamentum flavum and mild facet degenerative change. There is minimal posterior bulge about 3 to 4 mm AP as seen previously. Neural foramina are adequate. There is again minimal narrowing of the far lateral recesses greater on the left from posteriorly. There is again clumping of the descending nerve roots in the posterior, central aspect of the thecal sac. L4-L5: There is again fairly severe buckling of the ligamentum flavum and mild facet degenerative change. There is partial uncovering of the posterior aspect of the disc with minimal superimposed bulge. There is again moderate narrowing of lateral recesses bilaterally, mild to moderate narrowing of the central canal. There is mild, right greater than left neural foramina compromise. Posterior annular tear is more apparent on this exam. There is again clumping of the descending nerve roots in the posterior central aspect of the thecal sac. L5-S1: There is again mild facet degenerative change and buckling of the ligamentum flavum. Descending nerve roots are again at the periphery of the thecal sac. There is moderate facet degenerative change and minimal buckling of the ligamentum flavum. There is again [id number]-[id number] narrowing of the far left lateral recess, minimally on the right. There is minimal narrowing of the right neural foramen by facet and disc osteophyte complex, moderate narrowing on the left with contact of the exiting left L5 nerve root. Impression: 1. Findings are similar compared with January 2019 exam. There is again degenerative disc disease greatest at L5-S1 and L4-5. There is grade 1 anterior spondylolisthesis at L4-5 at which there is facet degenerative change and buckling of the ligamentum flavum. There is similar degree of moderate narrowing of the far lateral recesses bilaterally at L4-5, lesser degree of narrowing left greater than right at L5-S1 and minimal narrowing bilaterally at L3-4. 2. There is again moderate narrowing of the left L5-S1 neural foramen with contact exiting left L5 nerve root, minimal narrowing on the right at L5-S1 and bilaterally at L4-5. 3. There is again clumping of the nerve roots L3 into the sacrum, likely sequela of arachnoiditis. Electronically signed by: Nilson Chavarria MD (06/11/2019 11:41 AM) [id number]
== END | disposition home or self-care (01) ==
LOC: KCIC MRI 10:29
PROVIDERS: ATTEND Family Medicine
DX: M51.37 Other intervertebral disc degeneration, lumbosacral region (principal); M43.16 Spondylolisthesis, lumbar region; M47.817 Spondylosis without myelopathy or radiculopathy, lumbosacral region; M48.07 Spinal stenosis, lumbosacral region; M25.78 Osteophyte, vertebrae
CPT/HCPCS: 72148

== ENCOUNTER → 2019-07-16 | Outpatient (CLI) | payer MEDICARE, BC ==
--- NOTE | 2019-07-16 14:22 | PAIN ---
DATE OF SERVICE: 07/16/2019 PROGRESS NOTE FOR PAIN CLINIC DIAGNOSES: Lumbar radiculopathy with lumbar degenerative disk disease. HISTORY OF PRESENT ILLNESS: The patient is a 79-year-old female who returns for followup status post lumbar epidural steroid injection x 2, last seen 01/06/2019. The patient reports that she did well after the injection about 60% or so, but the pain is returning now in the low back and left lower extremity. The patient is apprehensive about getting another injection as the last one was quite painful during the procedure. The patient is asking for any alternative treatments. The patient rates her pain as a 10 on a scale of 10 at its worst over the past week, 7-9 on average, 1 at its least and is a 7 today. The patient reports it is aching and dull, shooting, sharp into the posterior gluteus on the left side, posterior lateral thigh on the left as well as the anterior medial thigh on the left side, also has increased pain in the feet bilaterally, also some tightness in the hands, which is worse in the mornings. The patient reports initially she was doing better with distance walking, doing household activities, traveling with greater ease and comfort, sleeping better at night, but now is beginning to awaken her from sleep again. We did start her on Medrol Dosepak on 07/05, which she reports did decrease the pain fairly significantly temporarily. The patient reports no new motor or sensory deficits, no new bowel or bladder incontinence or other complaints. PHYSICAL EXAMINATION: VITAL SIGNS: The patient's blood pressure 157/80, pulse 80, respirations 18, temperature 98.5 degrees Fahrenheit, height is 5 feet 3 inches, weight is 159 pounds. GENERAL: The patient is awake, alert, oriented, appropriate, very pleasant demeanor. HEENT: Shows normocephalic, atraumatic. Extraocular movements are intact and symmetrical. Oral cavity: Mucous membranes moist and pink. Dentition is intact. NECK: Shows anterior throat supple without palpable lymphadenopathy noted. Swallow reflex symmetrical. CHEST: Shows normal on inspection. Breath sounds are clear bilaterally. HEART: Shows S1, S2 clear. No murmurs auscultated. ABDOMEN: Soft, nontender, nondistended. No palpable organomegaly is noted. No rebound or guarding demonstrated. BACK: Shows spine grossly in the midline. Normal appearing thoracic kyphosis and minor flattening of lumbar lordotic curvature. Lumbar paraspinous muscle shows symmetrical on inspection, on palpation shows some moderate tenderness diffusely throughout the upper, middle and lower distribution of paraspinous muscles, but only diffusely without significant radiation, without trigger points or atrophy or hypertrophy. The patient shows good rotational motion of lumbar spine, both laterally greater than 10 degrees right and left as well as extension greater than 10 degrees, forward flexion 45 degrees without significant pain reported. EXTREMITIES: The patient's lower extremities show deep tendon reflexes 1+ in the patellar and tendo calcaneus tendons. Motor exam is 5/5 with dorsiflexion, extension, quadriceps and hamstring flexion and symmetrical. Peripheral pulses are 1+. No peripheral edema is noted. Options were discussed with the patient. The patient's old chart was reviewed as her current medication regimen updated. Current review of systems updated today as well. We will hold on any further injections at this time per the patient's wishes. Also recommended trying [id number] Aleve twice daily for about 1-2 weeks to see if this may help with the pain in the back and the feet as well as in the hands. The patient would like to try this first. We did discuss her MRI scan that she had recently performed on 06/10 showing comparison to 01/2019 film with similar findings from the January exam, degenerative disk disease greatest at L5-S1 and L4-L5 with moderate narrowing of the left L5-S1 neural foramen and contact exiting left L5 nerve root and minimal narrowing on the right at L5-S1 and bilaterally at L4-L5. The patient was given a copy of the report as well. The patient will follow up in approximately 2 weeks or as necessary. KACEY ALBERT MD DR: SALVATORE/randall JOB#: [id number] / [id number]
== END | disposition home or self-care (01) ==
LOC: PNCL 11:01
PROVIDERS: ATTEND Anesthesiology
DX: M51.16 Intervertebral disc disorders with radiculopathy, lumbar region (principal); I10 Essential (primary) hypertension; E11.9 Type 2 diabetes mellitus without complications; M19.90 Unspecified osteoarthritis, unspecified site; E78.00 Pure hypercholesterolemia, unspecified; Z79.899 Other long term (current) drug therapy; Z87.891 Personal history of nicotine dependence; Z85.118 Personal history of other malignant neoplasm of bronchus and lung; Z98.890 Other specified postprocedural states; Z90.710 Acquired absence of both cervix and uterus; Z90.49 Acquired absence of other specified parts of digestive tract; Z96.653 Presence of artificial knee joint, bilateral; Z88.0 Allergy status to penicillin; Z88.6 Allergy status to analgesic agent
CPT/HCPCS: G0463

== ENCOUNTER → 2019-08-04 | Outpatient (CLI) | payer MEDICARE, BC ==
--- NOTE | 2019-08-04 14:02 | RAD ---
PROCEDURE: HAND BILAT 2V STUDY DATE: 08/04/2019 CLINICAL INDICATION / HISTORY: Bilateral hand pain and swelling for one month. Acute reactive arthritis.. TECHNIQUE: PA, lateral and oblique views of the right hand. COMPARISON: None FINDINGS: No fracture or dislocation is identified. The bone density is normal. The joint spaces are maintained, and there are no erosions to suggest an inflammatory arthropathy. Chondrocalcinosis is present in the region of the triangular fibrocartilage. The soft tissues are otherwise unremarkable. IMPRESSION: 1. No acute osseous abnormality. 2. 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 Electronically signed by: Xuan Marin MD (08/04/2019 1:59 PM) [id number]
== END | disposition home or self-care (01) ==
LOC: RAD 13:16
PROVIDERS: ATTEND Family Medicine
DX: M11.242 Other chondrocalcinosis, left hand (principal); M11.241 Other chondrocalcinosis, right hand
CPT/HCPCS: 73120

== ENCOUNTER → 2019-11-04 | Outpatient (CLI) | payer MEDICARE, BC ==
[~2019-11-04] MED LIST changes: +IOHEXOL 180 MG/ML 10 ML VIAL. ONE; +methylPREDNISolone ACETATE 40 MG/ML VIAL. ONE; +methylPREDNISolone ACETATE 80 MG/ML VIAL. ONE
--- NOTE | 2019-11-04 12:54 | PAIN ---
DATE OF SERVICE: 11/04/2019 PROGRESS NOTE FOR PAIN CLINIC DIAGNOSIS: Lumbar radiculopathy with lumbar degenerative disk disease. HISTORY OF PRESENT ILLNESS: The patient is a 79-year-old female who returns for followup status post lumbar epidural steroid injection most recently on 01/06/2019. The patient did well with about 60% improvement overall. The patient reports the pain has been returning now. We discussed her MRI back in 07/2019 and she would like to proceed today with another lumbar epidural steroid injection as she has significant degenerative disk disease, especially at the L4-L5 level. The patient reports the pain significantly in the low back, right lower extremity, posterior gluteus, lateral thigh, anterior thigh, medial thigh, some in the lower leg, mostly in the hip in the low back. The patient reports it is 7 on a scale of 10 at its worse for the past week, 5 on average, 0 at its least and is a 7 today. The patient reports it is aching, on and off in intensity, but unbearable at times, worse with walking, standing, changing positions. The patient reports it is waking her from sleep about every 4-5 hours. No new motor or sensory deficits, but significant fatigability of the right leg with activity or standing. The patient reports no other concerns. No new bowel or bladder incontinence or other conditions. PHYSICAL EXAMINATION: VITAL SIGNS: The patient's blood pressure 117/67, pulse 67, respirations 16, temperature 99.5 degrees Fahrenheit, height is 5 feet 3 inches, weight is 167 pounds. GENERAL: The patient is awake, alert, oriented, appropriate, very pleasant demeanor. HEENT: Shows normocephalic, atraumatic. Extraocular movements are intact and symmetrical. Oral cavity: Mucous membranes moist and pink. Dentition is intact. NECK: Shows anterior throat supple without palpable lymphadenopathy noted. Swallow reflex symmetrical. Neck shows full rotational motion of cervical spine, both laterally as well as extension and flexion without significant difficulty. CHEST: Shows breath sounds clear to auscultation bilaterally. HEART: Shows S1, S2 clear. No murmurs auscultated. ABDOMEN: Soft, obese, nontender, nondistended. BACK: Shows spine grossly in the midline. Normal appearing thoracic kyphosis, some minor flattening of lumbar lordotic curvature. Lumbar paraspinous muscle shows symmetrical on inspection, on palpation shows some moderate tenderness diffusely in the low lumbar distribution bilaterally without asymmetry. No trigger points. No tenderness over the spinous processes, sacrum or sacroiliac regions. The patient has good rotational motion of lumbar spine, both laterally as well as extension and flexion without significant pain reported. EXTREMITIES: Lower extremities show deep tendon reflexes 1+ in the patellar and tendo calcaneus tendons. Motor exam is 5/5 with dorsiflexion, extension, quadriceps and hamstring flexion, symmetrical and equal. Peripheral pulses are 1+. No peripheral edema bilaterally. Options were discussed with the patient. The patient's old chart was reviewed as her current medication regimen updated, current review of system updated today as well and we will proceed with a first in this series of lumbar epidural steroid injection today with fluoroscopic guidance. Risks were again discussed including, but not limited to bleeding, infection, possibility of epidural hematoma, subsequent neurological compromise, dural puncture, headaches, spinal cord and/or nerve damage, side effects of steroid medication and poor results regarding pain control. The patient understands and wished to proceed. The patient will return to clinic in approximately 2 weeks for followup. She was counseled on return appointment, activity level and side effects to be aware of. DIAGNOSIS: Lumbar radiculopathy with lumbar degenerative disk disease. PROCEDURE: Lumbar epidural steroid injection, translaminar approach L4-L5 level using C-arm fluoroscopic guidance under sterile prep and drape using local anesthetic. MEDICATION INJECTED: A total of 120 mg Depo-Medrol plus 10 mL of preservative-free normal saline and 2 mL of contrast. CONDITION AT DISCHARGE: Stable. The patient tolerated procedure well, had no complications. KACEY ALBERT MD DR: SALVATORE/randall JOB#: [id number] / [id number]
== END | disposition home or self-care (01) ==
LOC: PNCL 11:26
PROVIDERS: ATTEND Anesthesiology
DX: M51.16 Intervertebral disc disorders with radiculopathy, lumbar region (principal); Z88.0 Allergy status to penicillin; Z88.8 Allergy status to other drugs, medicaments and biological substances; Z79.899 Other long term (current) drug therapy
CPT/HCPCS: 62323; J1030; J1040; Q9965

== ENCOUNTER → 2019-11-25 | Outpatient (CLI) | payer MEDICARE, BC ==
--- NOTE | 2019-11-25 11:07 | PDOC ---
Progress Note - Pain Clinic Date of Service: DOS: DATE: 11/25/19 TIME: 11:04 Diagnosis: Dx: Lumbar radiculopathy with lumbar degenerative disc disease History or Present Illness: HPI: Mahi 9-year-old female returns follow-up status post lumbar epidural injection x1. Patient reports about 90% improvement after the first injection. Patient worst pain is still present in the low back and right lower extremity but much improved beginning to return slightly in the low back and right leg posterior gluteus posterior lateral thigh lateral anterior thigh and medial thigh however is much better than it was. Patient rates her pain as a 9 on scale 10 is worse over the past week 9 on average 8 its least is an 8 today. Patient winifreds has been doing much better with increased distance walking and doing household activities try with greater ease and comfort sleeping better at night does not awaken her from sleep. Patient reports no new motor or sensory deficits no new bowel or bladder incontinence or other complaints. Physical Exam: VS: Blood pressure 152/72 pulse 70 respiration 16 temperature 98.5 F height is 5 foot 3 inches weight is 170 pounds PE: PHYSICAL EXAMINATION: GENERAL: The patient is awake, alert, oriented, appropriate, very pleasant demeanor HEENT: Shows normocephalic, atraumatic. Extraocular movements are intact and symmetrical. Oral cavity: Mucous membranes moist and pink. Dentition is intact. NECK: Shows anterior throat supple without palpable lymphadenopathy noted. Swallow reflex symmetrical. CHEST: Shows normal on inspection. Breath sounds are clear bilaterally, no rales rhonchi or wheezes auscultated. HEART: Shows S1, S2 clear. No murmurs auscultated. ABDOMEN: Soft, nontender, nondistended. No palpable organomegaly is noted. No rebound or guarding demonstrated. BACK: Shows spine grossly in the midline. Normal-appearing cervical lordotic curvature. There is slightly increased thoracic kyphosis, some minor flattening of the lumbar lordotic curvature. Lumbar paraspinous muscles show symmetrical on inspection, on palpation shows some moderate tenderness diffusely throughout the upper, middle and lower distribution of the paraspinous muscles bilaterally without specific trigger points, without radiation of pain. The patient has good rotational motion of the lumbar spine, both laterally as well as extension and flexion without significant difficulty. No tenderness over the spinous processes, sacrum or sacroiliac regions. EXTREMITIES: Lower extremities show deep tendon reflexes 1+ in the patellar and tendo calcaneus tendons. Motor exam is 5 on a scale of 5 with right dorsiflexion, extension, quadriceps and hamstring flexion and 5/5 on the left. Peripheral pulses are 1+ posterior tibial. No peripheral edema is noted bilaterally. Lower extremities are warm and dry to touch, equal in color and appearance. SKIN: Shows warm and dry, good turgor. No edema. No sores, rashes or bruising throughout. Procedure: Procedure: Options discussed with the patient. Patient will chart reviews her current medication regimen updated current review of systems updated today as well. We will proceed with a second in the series lumbar epidural steroid injections today with fluoroscopic guidance risks were again discussed including but not limited to bleeding infection possibility of epidural hematoma subsequent neurological compromise dural puncture headache spinal cord and or nerve damage side effects of steroid medication/guarding pain control. Patient understands wished to proceed. Patient return to clinic in approximately 2 weeks for follow-up was counseled as to return appointment activity level and side effects to be aware. Medication Injected: Med Injected: Procedure is lumbar epidural steroid injection under local anesthetic using sterile prep and drape at the L4-5 level using C-arm fluoroscopic guidance in both AP and lateral views medications injected is 120 mg Depo-Medrol + 10 mL preservative-free normal saline and 2 mL Isovue for contrast- condition at discharge is stable patient tolerated procedure well had no complications. Condition at Discharge: Condition at Discharge: Condition at discharge is stable patient tolerated the procedure well had no complications. KACEY ALBERT MD Nov 25, 2019 11:07
== END | disposition home or self-care (01) ==
LOC: PNCL 10:04
PROVIDERS: ATTEND Anesthesiology
DX: M51.16 Intervertebral disc disorders with radiculopathy, lumbar region (principal); I10 Essential (primary) hypertension; E11.9 Type 2 diabetes mellitus without complications; Z88.0 Allergy status to penicillin; Z88.8 Allergy status to other drugs, medicaments and biological substances; Z79.899 Other long term (current) drug therapy; Z98.890 Other specified postprocedural states
CPT/HCPCS: 62323; J1030; J1040; Q9965

== ENCOUNTER 2020-04-03 19:21 | Inpatient (IN) | payer MEDICARE, BC ==
[~2020-04-03] VITALS: Ht 160 cm; Wt 77.9 kg
[~2020-04-03 19:21] MED LIST changes: -IOHEXOL 180 MG/ML 10 ML VIAL. ONE; -methylPREDNISolone ACETATE 40 MG/ML VIAL. ONE; -methylPREDNISolone ACETATE 80 MG/ML VIAL. ONE
--- NOTE | 2020-04-03 19:29 | PHYS DOC ---
Past Medical History Past Medical History: Cancer, Other Additional Past Medical Histor: Diabetic"diet controlled,"Hx Lung CA. Past Surgical History: Appendectomy, Cholecystectomy, Hysterectomy, Other Additional Past Surgical Histo: EGD,Lobe of R)lung removed for CA,Bilat knee replacement Smoking Status: Former Smoker Alcohol Use: None Drug Use: None General Adult EDM: Chief Complaint: CHEST PAIN HPI: HPI: Patient is a 80 year old female who presents with a chief complaint of shortness of breath. Patient had progressive shortness of breath over the last several days. Patient had a mild cough as well. Patient denies any contact with patients with COVID-19. Patient denies any fever. Patient denies any chest pain. Patient has had some bilateral shoulder pain. Patient also complains of swelling in her hands and her feet. Symptoms are worse with palpation of her legs. Symptoms are worse with lying flat and with exertion with her dyspnea Review of Systems: Review of Systems: Constitutional: Denies fever or chills. [] Eyes: Denies change in visual acuity. [] HENT: Denies nasal congestion or sore throat. [] Respiratory: Complains of cough and shortness of breath Cardiovascular: Denies chest pain swelling in her legs GI: Denies abdominal pain, nausea, vomiting, bloody stools or diarrhea. [] : Denies dysuria. [] Musculoskeletal: Denies back pain but complains of shoulder pain Integument: Denies rash. [] Neurologic: Denies headache, focal weakness or sensory changes. [] Endocrine: Denies polyuria or polydipsia. [] Lymphatic: Denies swollen glands. [] Psychiatric: Denies depression or anxiety. [] Heart Score: HEART Score for Chest Pain: HEART Score for Chest Pain Response (Comments) Value History Slighlty/Non-Suspicious 0 ECG Nonspecific Repolarizatio 1 Age > 65 2 Risk Factors >3 Risk Factors or Hx CAD 2 Troponin < Normal Limit 0 Total 5 Risk Factors: Risk Factors: DM, Current or recent (<one month) smoker, HTN, HLP, family history of CAD, obesity. Risk Scores: Score 0 - 3: 2.5% MACE over next 6 weeks - Discharge Home Score 4 - 6: 20.3% MACE over next 6 weeks - Admit for Clinical Observation Score 7 - 10: 72.7% MACE over next 6 weeks - Early Invasive Strategies Allergies: Allergies: Allergies Coded Allergies Type Severity Reaction Last Updated Verified Penicillins Allergy Intermediate 11/25/13 Yes tramadol Allergy Intermediate Tolerates Lortab/OxyContin at home 02/19/15 Yes Physical Exam: PE: Constitutional: Well developed, well nourished, no acute distress, non-toxic appearance. [] HENT: Normocephalic, atraumatic, bilateral external ears normal, no trismus, nose normal. [] Eyes: PERRLA, EOMI, conjunctiva normal, no discharge. [] Neck: Normal range of motion, no tenderness, supple, no stridor. [] Cardiovascular: Mildly tachycardic, regular rhythm, peripheral pulse intact, cap refills less than 2 seconds Lungs & Thorax: No respiratory stress, decreased breath sounds bilaterally Abdomen: Bowel sounds normal, soft, no tenderness, no masses, no pulsatile masses. [] Skin: Warm, dry, no erythema, no rash. [] Back: No tenderness, no CVA tenderness. [] Extremities: Mild tenderness bilateral lower extremities no cyanosis, no clubbing, ROM intact, 1+ bilateral lower extremity edema, right greater than left, mild erythema to the right leg Neurologic: Alert and oriented X 3, normal motor function, normal sensory function, no focal deficits noted. [] Psychologic: Affect normal, judgement normal, mood normal. [] Current Patient Data: Labs: Laboratory Tests Test 04/03/20 19:42 04/03/20 20:06 White Blood Count 4.0 x10^3/uL Red Blood Count 4.14 x10^6/uL Hemoglobin 11.6 g/dL Hematocrit 35.8 % Mean Corpuscular Volume 87 fL Mean Corpuscular Hemoglobin 28 pg Mean Corpuscular Hemoglobin Concent 32 g/dL Red Cell Distribution Width 15.6 % Platelet Count 230 x10^3/uL Neutrophils (%) (Auto) 57 % Lymphocytes (%) (Auto) 32 % Monocytes (%) (Auto) 8 % Eosinophils (%) (Auto) 3 % Basophils (%) (Auto) 1 % Neutrophils # (Auto) 2.2 x10^3/uL Lymphocytes # (Auto) 1.3 x10^3/uL Monocytes # (Auto) 0.3 x10^3/uL Eosinophils # (Auto) 0.1 x10^3/uL Basophils # (Auto) 0.0 x10^3/uL Lactic Acid Level 1.1 mmol/L Prothrombin Time 13.8 SEC Prothromb Time International Ratio 1.1 Activated Partial Thromboplast Time 35 SEC D-Dimer (Nakia) 1.82 ug/mlFEU Sodium Level 139 mmol/L Potassium Level 3.9 mmol/L Chloride Level 105 mmol/L Carbon Dioxide Level 27 mmol/L Anion Gap 7 Blood Urea Nitrogen 12 mg/dL Creatinine 0.8 mg/dL Estimated GFR (Cockcroft-Gault) 69.0 BUN/Creatinine Ratio 15 Glucose Level 124 mg/dL Calcium Level 9.8 mg/dL Total Bilirubin 0.5 mg/dL Aspartate Amino Transf (AST/SGOT) 16 U/L Alanine Aminotransferase (ALT/SGPT) 13 U/L Alkaline Phosphatase 104 U/L Troponin I Quantitative < 0.017 ng/mL [id number]-[id number] Natriuretic Peptide 1367 pg/mL Total Protein 6.0 g/dL Albumin 3.1 g/dL Albumin/Globulin Ratio 1.1 Current Medications Medications (Trade) Dose Ordered Sig/Silvio Route PRN Reason Start Time Stop Time Status Last Admin Dose Admin Furosemide (Lasix) 40 mg 1X ONCE IVP 04/03/20 21:00 04/03/20 21:01 DC 04/03/20 21:03 Aspirin (Aspirin Chewable) 324 mg 1X ONCE PO 04/03/20 21:00 04/03/20 21:01 DC 04/03/20 21:03 Iohexol (Omnipaque 350 Mg/ml) 100 ml 1X ONCE IV 04/03/20 21:00 04/03/20 21:01 DC Info (CONTRAST GIVEN -- Rx MONITORING) 1 each PRN DAILY PRN MC SEE COMMENTS 04/03/20 21:00 04/05/20 20:59 Dexamethasone Sodium Phosphate (Decadron) 6 mg DAILY IVP 04/03/20 21:30 Vital Signs: Vital Signs Date Time Temp Pulse Resp B/P (MAP) Pulse Ox O2 Delivery O2 Flow Rate FiO2 04/03/20 19:25 98.5 108 19 186/95 (125) 93 Room Air 98.5 EKG: EKG: [] EKG interpreted by me sinus tachycardia with a rate of 102, normal axis, right bundle branch block pattern, first-degree AV block, nonspecific ST changes Radiology/Procedures: Radiology/Procedures: [][facility] [address] [place] [address] IMAGING REPORT Signed PATIENT: IZABELLA BACON ACCOUNT: [id number] : 1940 LOCATION: ER AGE: 80 SEX: F EXAM STATUS: REG ER ORD. PHYSICIAN: WILMAN STEWART MD REASON: SOA PROCEDURE: PORTABLE CHEST 1V Exam performed: One view chest. Indication: Reason: SOA / Spl. Instructions: / History: Date of Service: 04/03/2020 9:10 PM Comparison: None available. Single AP upright portable view chest findings: Mild cardiomegaly. There is mild central vascular congestion. Haziness in the left lung base may be related to overlying soft tissues, however underlying infiltrates not excluded. Linear airspace opacity in the medial right lung base perhaps atelectasis.. No acute infiltrates, effusion or pneumothorax is detected. The bony structures are normal. Impression: Cardiomegaly with haziness left lung base likely infiltrates. Atelectasis right lung base Electronically signed by: Trish Jimenez MD (04/03/2020 9:24 PM) [facility] DICTATED and SIGNED BY: TRISH JIMENEZ MD DATE: 04/03/20 [id number] [facility] [address] [place] [address] IMAGING REPORT Signed PATIENT: IZABELLA BACON ACCOUNT: [id number] : 1940 LOCATION: ER AGE: 80 SEX: F EXAM STATUS: REG ER ORD. PHYSICIAN: WILMAN STEWART MD REASON: B/L LE PAIN, SWELLING, SOA PROCEDURE: VENOUS LOWER EXT BILATERAL Bilateral Leg Venous Doppler Ultrasound, 04/03/2020 Indication: Bilateral leg swelling for 3 days, shortness of breath Comparison: None available Procedure: Real-time grayscale, color flow color duplex Doppler and spectral analysis are obtained with and without compression in the area of the common femoral vein, superficial femoral vein - femoral vein junction, main femoral vein (superficial femoral vein) and popliteal vein. Veins of the proximal calf are also imaged. Findings: There is normal duplex flow, color flow and compressibility of all visualized vein segments. No evidence of deep venous thrombus is present. Impression: Negative venous Doppler of bilateral lower extremity Electronically signed by: Trish Jimenez MD (04/03/2020 9:12 PM) [facility] DICTATED and SIGNED BY: TRISH JIMENEZ MD DATE: 04/03/20 [id number] [facility] [address] [place] [address] IMAGING REPORT Signed PATIENT: IZABELLA BACON ACCOUNT: [id number] : 1940 LOCATION: ER AGE: 80 SEX: F EXAM STATUS: REG ER ORD. PHYSICIAN: WILMAN STEWART MD REASON: soa, chest pain, elevated d dimer, omni 350, 100 ml iv PROCEDURE: CT ANGIOGRAPHY CHEST Exam: CT of chest with contrast INDICATION: Short of air, chest pain TECHNIQUE: Sequential axial images through the chest obtained following the administration of 100 mL of Isovue-370 IV contrast. Sagittal and coronal reformatted images were reconstructed from the axial data and reviewed. 3-D reformatted images were reconstructed from the axial data and reviewed. Comparisons: Chest x-ray same day FINDINGS: Visualized portions of the thyroid are unremarkable. No enlarged mediastinal lymph nodes are identified. Heart size is normal. No pericardial effusion. Thoracic aorta has a normal course and caliber. Pulmonary artery is not enlarged. No pulmonary embolus identified within the main, lobar or segmental pulmonary arteries. Airways are patent. No consolidation or pneumothorax. Mild centrilobular emphysematous change noted predominantly at the upper lungs. No suspicious lung nodules. No pleural effusion or thickening. Pneumobilia noted. Visualized upper abdomen is unremarkable. No suspicious osseous lesions or acute fractures. IMPRESSION: No pulmonary embolus is defined within the main, lobar or segmental pulmonary arteries. Exposure: One or more of the following in the visualized dose reduction techniques were utilized for this examination: 1. Automated exposure control 2. Adjustment of the MA and/or KV according to patient size 3. Use of iterative of reconstructive technique Electronically signed by: Delmy Fabian MD (04/03/2020 10:28 PM) [facility] DICTATED and SIGNED BY: EDLMY FABIAN MD DATE: 04/03/20 [id number] Course & Med Decision Making: Course & Med Decision Making Pertinent Labs and Imaging studies reviewed. (See chart for details) [] 8-year-old female presents with shortness of breath. X-ray reveals some possible infiltrate. Patient's been swab for COVID-19 and treated with antibiotics. Patient has a swelling of bilateral lower extremities which is negative for DVT. Patient due to her dyspnea she had a D-dimer which was positive. A CT angiogram has been ordered. Patient has elevated BNP and been given a dose of Lasix. Patient will be admitted to Dr. Crabtree with cardiac consult placed. Paolo Disclaimer: Paolo Disclaimer: This electronic medical record was generated, in whole or in part, using a voice recognition dictation system. Departure Departure Impression: Primary Impression: CAP (community acquired pneumonia) Additional Impressions: Dyspnea CHF (congestive heart failure) Bilateral lower extremity edema Disposition: ADMITTED INPT THIS HOSP Admitting Physician: KOFI FAROOQ) Condition: STABLE Referrals: Rosalio POLANCO MD (PCP) WILMAN STEWART MD Apr 03, 2020 19:29
[2020-04-03 19:55] LABS: BASO % 1 % (0-3); EOS # 0.1 x10^3/uL (0.0-0.7); EOS % 3 % (0-3); HEMATOCRIT 35.8 % (36.0-47.0); HEMOGLOBIN 11.6 g/dL (12.0-15.5); LYMPH # 1.3 x10^3/uL (1.0-4.8); LYMPH % 32 % (24-48); MEAN CORPUSCULAR HEMOGLOBIN 28 pg (25-35); MEAN CORPUSCULAR HGB CONC 32 g/dL (31-37); MEAN CORPUSCULAR VOLUME 87 fL (79-100); MONO # 0.3 x10^3/uL (0.0-1.1); MONO % 8 % (0-9); NEUT # 2.2 x10^3/uL (1.8-7.7); NEUT % 57 % (31-73); PLATELET COUNT 230 x10^3/uL (140-400); RED BLOOD COUNT 4.14 x10^6/uL (3.50-5.40); RED CELL DISTRIBUTION WIDTH 15.6 % (11.5-14.5)
[2020-04-03 20:23] LABS: CALCIUM 9.8 mg/dL (8.5-10.1); CREATININE 0.8 mg/dL (0.6-1.0); POTASSIUM 3.9 mmol/L (3.5-5.1)
[2020-04-03 20:29] LABS: ALBUMIN 3.1 g/dL (3.4-5.0); ALBUMIN/GLOBULIN RATIO 1.1 (1.0-1.7); TOTAL BILIRUBIN 0.5 mg/dL (0.2-1.0)
[2020-04-03 20:30] LABS: PROTHROMBIN TIME PATIENT 13.8 SEC (11.7-14.0)
[2020-04-03 20:34] LABS: D-DIMER 1.82 ug/mlFEU (0.00-0.50)
[2020-04-03] MEDS ORDERED: IOHEXOL 350 MG/ML 100 ML VIAL. IV ONE (21:00)
[2020-04-03] MEDS ORDERED: CONTRAST GIVEN. MC PRN (21:00)
[2020-04-03] MEDS ORDERED: FUROSEMIDE 40 MG/4 ML VIAL. IVP ONE (21:00)
[2020-04-03] MEDS ORDERED: ASPIRIN CHEWABLE 81 MG TABLET. PO ONE (21:00)
--- NOTE | 2020-04-03 21:13 | PDOC1 ---
History and Physical Date of Admission Date of Admission DATE: 04/03/20 TIME: 20:57 Identification/Chief Complaint Chief Complaint SOB Source Source: Chart review, Patient History of Present Illness History of Present Illness Patient is 80-year-old female with past medical history lung cancer, who presents to the ER with complaint of worsening shortness of breath, cough, nausea, and bilateral lower extremities for swelling over the past few days. She states her swelling has been greater in her right lower extremity, with some associated pain and erythema. She reports aching pain, 6/10. Right lower extremity pain is worse with palpation and dorsiflexion of her right foot. Her shortness of breath is aggravated with exertion. She denies any sick contacts or known COVID-19 exposure. Ultrasound obtained in the ER negative for DVT. Chest x-ray on admission showing likely infiltrate in left lung base. Will admit patient for further medical management. Past Medical History Past Medical History DM2, lung cancer Past Surgical History Past Surgical History Appendectomy, cholecystectomy, hysterectomy, right lung resection, bilateral knee replacement. Family History Family History Denies pertinent family history Social History Smoke: Quit ALCOHOL: none Drugs: None Current Medications Current Medications Current Medications Furosemide (Lasix) 40 mg 1X ONCE IVP ; Start 04/03/20 at 21:00; Stop 04/03/20 at 21:01 Aspirin (Aspirin Chewable) 324 mg 1X ONCE PO ; Start 04/03/20 at 21:00; Stop 04/03/20 at 21:01 Iohexol (Omnipaque 350 Mg/ml) 100 ml 1X ONCE IV ; Start 04/03/20 at 21:00; Stop 04/03/20 at 21:01 Info (CONTRAST GIVEN -- Rx MONITORING) 1 each PRN DAILY PRN MC SEE COMMENTS; Start 04/03/20 at 21:00; Stop 04/05/20 at 20:59 Active Scripts Active Reported Methadone Hcl 5 Mg Tablet 1 Tab PO TID Lidoderm (Lidocaine) 700 Mg Adh..patch 1 Patch TP DAILY Vitamin D3 (Cholecalciferol (Vitamin D3)) 1,000 Unit Tablet 1,000 Unit PO DAILY Sertraline Hcl 25 Mg Tablet 25 Mg PO DAILY Toprol Xl (Metoprolol Succinate) 50 Mg Tab.er.24h 50 Mg PO DAILY Atorvastatin Calcium 20 Mg Tablet 20 Mg PO HS Lisinopril 10 Mg Tablet 10 Mg PO DAILY Allergies Allergies: Coded Allergies: Penicillins (Verified Allergy, Intermediate, 11/25/13) tramadol (Verified Allergy, Intermediate, Tolerates Lortab/OxyContin at home, 02/19/15) ROS Review of System GENERAL: No history of weight change, weakness or fevers. SKIN: No bruising, hair changes or rashes. EYES: No blurred, double or loss of vision. NOSE AND THROAT: No history of nosebleeds, hoarseness or sore throat. HEART: Denies chest pain, denies palpitations. LUNGS: Shortness of breath, cough. Denies hemoptysis.. GASTROINTESTINAL: Nausea. Denies vomiting, abdominal pain. GENITOURINARY: Denies dysuria, frequency, urgency, hematuria. NEUROLOGIC: Denies history of numbness, tingling, tremor or weakness. PSYCHIATRIC: Denies anxiety, denies depression. ENDOCRINE: No history of heat or cold intolerance, polyuria or polydipsia. EXTREMITIES: Right lower extremity swelling and erythema. Physical Exam Physical Exam General: Alert, Oriented X3, Cooperative, No acute distress HEENT: PERRLA, EOMI Lungs: Decreased breath sounds, Normal air movement Heart: RRR, no murmurs Cardiovascular: S1, S2 Abdomen: Normal bowel sounds, Soft, No tenderness Extremities: 2+ edema right lower extremity, pain with dorsiflexion, pain with calf squeeze. 1+ edema left lower extremity. No clubbing, No cyanosis Skin: No rashes, No significant lesion Neuro: Normal speech, Normal tone, Sensation intact Psych/Mental Status: Mental status NL, Mood NL Vitals Vitals Vital Signs Date Time Temp Pulse Resp B/P (MAP) Pulse Ox O2 Delivery O2 Flow Rate FiO2 04/03/20 19:25 98.5 108 19 186/95 (125) 93 Room Air 98.5 Labs Labs Laboratory Tests Test 04/03/20 19:42 04/03/20 20:06 White Blood Count 4.0 x10^3/uL (4.0-11.0) Red Blood Count 4.14 x10^6/uL (3.50-5.40) Hemoglobin 11.6 g/dL (12.0-15.5) Hematocrit 35.8 % (36.0-47.0) Mean Corpuscular Volume 87 fL (79-100) Mean Corpuscular Hemoglobin 28 pg (25-35) Mean Corpuscular Hemoglobin Concent 32 g/dL (31-37) Red Cell Distribution Width 15.6 % (11.5-14.5) Platelet Count 230 x10^3/uL (140-400) Neutrophils (%) (Auto) 57 % (31-73) Lymphocytes (%) (Auto) 32 % (24-48) Monocytes (%) (Auto) 8 % (0-9) Eosinophils (%) (Auto) 3 % (0-3) Basophils (%) (Auto) 1 % (0-3) Neutrophils # (Auto) 2.2 x10^3/uL (1.8-7.7) Lymphocytes # (Auto) 1.3 x10^3/uL (1.0-4.8) Monocytes # (Auto) 0.3 x10^3/uL (0.0-1.1) Eosinophils # (Auto) 0.1 x10^3/uL (0.0-0.7) Basophils # (Auto) 0.0 x10^3/uL (0.0-0.2) Lactic Acid Level 1.1 mmol/L (0.4-2.0) Prothrombin Time 13.8 SEC (11.7-14.0) Prothromb Time International Ratio 1.1 (0.8-1.1) Activated Partial Thromboplast Time 35 SEC (24-38) D-Dimer (Nakia) 1.82 ug/mlFEU (0.00-0.50) Sodium Level 139 mmol/L (136-145) Potassium Level 3.9 mmol/L (3.5-5.1) Chloride Level 105 mmol/L (98-107) Carbon Dioxide Level 27 mmol/L (21-32) Anion Gap 7 (6-14) Blood Urea Nitrogen 12 mg/dL (7-20) Creatinine 0.8 mg/dL (0.6-1.0) Estimated GFR (Cockcroft-Gault) 69.0 BUN/Creatinine Ratio 15 (6-20) Glucose Level 124 mg/dL (70-99) Calcium Level 9.8 mg/dL (8.5-10.1) Total Bilirubin 0.5 mg/dL (0.2-1.0) Aspartate Amino Transf (AST/SGOT) 16 U/L (15-37) Alanine Aminotransferase (ALT/SGPT) 13 U/L (14-59) Alkaline Phosphatase 104 U/L (46-116) Troponin I Quantitative < 0.017 ng/mL (0.000-0.055) VA-Sic-E-Type Natriuretic Peptide 1367 pg/mL (0-449) Total Protein 6.0 g/dL (6.4-8.2) Albumin 3.1 g/dL (3.4-5.0) Albumin/Globulin Ratio 1.1 (1.0-1.7) Laboratory Tests Test 04/03/20 19:42 04/03/20 20:06 White Blood Count 4.0 x10^3/uL (4.0-11.0) Red Blood Count 4.14 x10^6/uL (3.50-5.40) Hemoglobin 11.6 g/dL (12.0-15.5) Hematocrit 35.8 % (36.0-47.0) Mean Corpuscular Volume 87 fL (79-100) Mean Corpuscular Hemoglobin 28 pg (25-35) Mean Corpuscular Hemoglobin Concent 32 g/dL (31-37) Red Cell Distribution Width 15.6 % (11.5-14.5) Platelet Count 230 x10^3/uL (140-400) Neutrophils (%) (Auto) 57 % (31-73) Lymphocytes (%) (Auto) 32 % (24-48) Monocytes (%) (Auto) 8 % (0-9) Eosinophils (%) (Auto) 3 % (0-3) Basophils (%) (Auto) 1 % (0-3) Neutrophils # (Auto) 2.2 x10^3/uL (1.8-7.7) Lymphocytes # (Auto) 1.3 x10^3/uL (1.0-4.8) Monocytes # (Auto) 0.3 x10^3/uL (0.0-1.1) Eosinophils # (Auto) 0.1 x10^3/uL (0.0-0.7) Basophils # (Auto) 0.0 x10^3/uL (0.0-0.2) Lactic Acid Level 1.1 mmol/L (0.4-2.0) Prothrombin Time 13.8 SEC (11.7-14.0) Prothromb Time International Ratio 1.1 (0.8-1.1) Activated Partial Thromboplast Time 35 SEC (24-38) D-Dimer (Nakia) 1.82 ug/mlFEU (0.00-0.50) Sodium Level 139 mmol/L (136-145) Potassium Level 3.9 mmol/L (3.5-5.1) Chloride Level 105 mmol/L (98-107) Carbon Dioxide Level 27 mmol/L (21-32) Anion Gap 7 (6-14) Blood Urea Nitrogen 12 mg/dL (7-20) Creatinine 0.8 mg/dL (0.6-1.0) Estimated GFR (Cockcroft-Gault) 69.0 BUN/Creatinine Ratio 15 (6-20) Glucose Level 124 mg/dL (70-99) Calcium Level 9.8 mg/dL (8.5-10.1) Total Bilirubin 0.5 mg/dL (0.2-1.0) Aspartate Amino Transf (AST/SGOT) 16 U/L (15-37) Alanine Aminotransferase (ALT/SGPT) 13 U/L (14-59) Alkaline Phosphatase 104 U/L (46-116) Troponin I Quantitative < 0.017 ng/mL (0.000-0.055) EQ-Sgz-F-Type Natriuretic Peptide 1367 pg/mL (0-449) Total Protein 6.0 g/dL (6.4-8.2) Albumin 3.1 g/dL (3.4-5.0) Albumin/Globulin Ratio 1.1 (1.0-1.7) Images Images Bilateral Leg Venous Doppler Ultrasound, 04/03/2020 Indication: Bilateral leg swelling for 3 days, shortness of breath Comparison: None available Procedure: Real-time grayscale, color flow color duplex Doppler and spectral analysis are obtained with and without compression in the area of the common femoral vein, superficial femoral vein - femoral vein junction, main femoral vein (superficial femoral vein) and popliteal vein. Veins of the proximal calf are also imaged. Findings: There is normal duplex flow, color flow and compressibility of all visualized vein segments. No evidence of deep venous thrombus is present. Impression: Negative venous Doppler of bilateral lower extremity Exam performed: One view chest. Indication: Reason: SOA / Spl. Instructions: / History: Date of Service: 04/03/2020 9:10 PM Comparison: None available. Single AP upright portable view chest findings: Mild cardiomegaly. There is mild central vascular congestion. Haziness in the left lung base may be related to overlying soft tissues, however underlying infiltrates not excluded. Linear airspace opacity in the medial right lung base perhaps atelectasis.. No acute infiltrates, effusion or pneumothorax is detected. The bony structures are normal. Impression: Cardiomegaly with haziness left lung base likely infiltrates. Atelectasis right lung base Exam: CT of chest with contrast INDICATION: Short of air, chest pain TECHNIQUE: Sequential axial images through the chest obtained following the administration of 100 mL of Isovue-370 IV contrast. Sagittal and coronal reformatted images were reconstructed from the axial data and reviewed. 3-D reformatted images were reconstructed from the axial data and reviewed. Comparisons: Chest x-ray same day FINDINGS: Visualized portions of the thyroid are unremarkable. No enlarged mediastinal lymph nodes are identified. Heart size is normal. No pericardial effusion. Thoracic aorta has a normal course and caliber. Pulmonary artery is not enlarged. No pulmonary embolus identified within the main, lobar or segmental pulmonary arteries. Airways are patent. No consolidation or pneumothorax. Mild centrilobular emphysematous change noted predominantly at the upper lungs. No suspicious lung nodules. No pleural effusion or thickening. Pneumobilia noted. Visualized upper abdomen is unremarkable. No suspicious osseous lesions or acute fractures. IMPRESSION: No pulmonary embolus is defined within the main, lobar or segmental pulmonary arteries. VTE Prophylaxis Ordered VTE Prophylaxis Devices: No VTE Pharmacological Prophylaxi: Yes Assessment/Plan Assessment/Plan Acute respiratory failure with hypoxia CAP COVID-19 PUI RLE cellulitis Elevated D-dimer DM2 with hyperglycemia Malnutrition Plan: Will admit patient continue treatment with Rocephin and Azithromycin Rocephin will also cover for RLE cellulitis Supportive care with supplemental oxygen and dexamethasone COVID-19 pending; if positive will consider treatment with remdesivir Consultation placed to cardiology; echocardiogram pending; received Lasix 40 mg x 1 in ED Patient currently breathing on 2 L oxygen. Will wean O2 and evaluate oxygen requirement with 6-minute walk Ultrasound right lower extremity negative for DVT FEN - ADA diet PPX - Lovenox FULL CODE Dispo - inpatient for above Justifications for Admission Other Justification DIAMOND ACEVEDO MD Apr 03, 2020 21:13
--- NOTE | 2020-04-03 21:14 | RAD ---
Bilateral Leg Venous Doppler Ultrasound, 04/03/2020 Indication: Bilateral leg swelling for 3 days, shortness of breath Comparison: None available Procedure: Real-time grayscale, color flow color duplex Doppler and spectral analysis are obtained w ith and without compression in the area of the common femoral vein, superficial femoral vein - femora l vein junction, main femoral vein (superficial femoral vein) and popliteal vein. Veins of the proxim al calf are also imaged. Findings: There is normal duplex flow, color flow and compressibility of all visualized vein segment s. No evidence of deep venous thrombus is present. Impression: Negative venous Doppler of bilateral lower extremity Electronically signed by: Trish Jimenez MD (04/03/2020 9:12 PM) [facility]
--- NOTE | 2020-04-03 21:27 | RAD ---
Exam performed: One view chest. Indication: Reason: SOA / Spl. Instructions: / History: Date of Service: 04/03/2020 9:10 PM Comparison: None available. Single AP upright portable view chest findings: Mild cardiomegaly. There is mild central vascular congestion. Haziness in the left lung base may be r elated to overlying soft tissues, however underlying infiltrates not excluded. Linear airspace opacit y in the medial right lung base perhaps atelectasis.. No acute infiltrates, effusion or pneumothorax is detected. The bony structures are normal. Impression: Cardiomegaly with haziness left lung base likely infiltrates. Atelectasis right lung base Electronically signed by: Trish Jimenez MD (04/03/2020 9:24 PM) [facility]
[2020-04-03] MEDS ORDERED: AZITHRMYCN 500MG IVPB FOR OMNI 250 ML IV ONE (22:00)
[2020-04-03] MEDS ORDERED: cefTRIAXone IV Push 1 GM VIAL. IVP ONE (22:00)
--- NOTE | 2020-04-03 22:30 | RAD ---
Exam: CT of chest with contrast INDICATION: Short of air, chest pain TECHNIQUE: Sequential axial images through the chest obtained following the administration of 100 mL of Isovue-370 IV contrast. Sagittal and coronal reformatted images were reconstructed from the axial data and reviewed. 3-D reformatted images were reconstructed from the axial data and reviewed. Comparisons: Chest x-ray same day FINDINGS: Visualized portions of the thyroid are unremarkable. No enlarged mediastinal lymph nodes are identifi ed. Heart size is normal. No pericardial effusion. Thoracic aorta has a normal course and caliber. Pulmon clarissa artery is not enlarged. No pulmonary embolus identified within the main, lobar or segmental pulmo nary arteries. Airways are patent. No consolidation or pneumothorax. Mild centrilobular emphysematous change noted p redominantly at the upper lungs. No suspicious lung nodules. No pleural effusion or thickening. Pneumobilia noted. Visualized upper abdomen is unremarkable. No suspicious osseous lesions or acute fractures. IMPRESSION: No pulmonary embolus is defined within the main, lobar or segmental pulmonary arteries. Exposure: One or more of the following in the visualized dose reduction techniques were utilized for this examination: 1. Automated exposure control 2. Adjustment of the MA and/or KV according to patient size 3. Use of iterative of reconstructive technique Electronically signed by: Delmy García MD (04/03/2020 10:28 PM) [facility]
[2020-04-03] MEDS: DEXAMETHASONE SOD PHOS 4 MG/ML VIAL IVP SCH (22:40)
[2020-04-03] MEDS ORDERED: CALCIUM CARBONATE 500 MG TAB.CHEW PO PRN (23:15)
[2020-04-03] MEDS ORDERED: ONDANSETRON PF 4 MG/2 ML VIAL. IVP PRN (23:15)
[2020-04-03] MEDS ORDERED: BISACODYL 10 MG SUPP.RECT. PR PRN (23:15)
[2020-04-03] MEDS ORDERED: ZOLPIDEM 5 MG TABLET. PO PRN (23:15)
[2020-04-03] MEDS ORDERED: PROCHLORPERAZINE 10 MG/2 ML VIAL. IVP PRN (23:15)
[2020-04-03] MEDS ORDERED: HYDROcodone/APAP 5/325MG 1 TAB TABLET PO PRN (23:15)
[2020-04-03] MEDS ORDERED: MAG HYDROX/ALUMINUM HYD/SIMETH 30 ML ORAL.SUSP PO PRN (23:15)
[2020-04-03] MEDS ORDERED: MAGNESIUM HYDROXIDE 2,400 MG/30 ML ORAL.SUSP. PO PRN (23:15)
[2020-04-03] MEDS ORDERED: ACETAMINOPHEN 325 MG TABLET. PO PRN (23:15)
[2020-04-03] MEDS: ENOXAPARIN 40 MG/0.4 ML SYRINGE. SQ SCH (23:29)
--- NOTE | 2020-04-04 04:00 | NUR ---
The patient, IZABELLA BACON, 80 y/o, F admitted by DIAMOND ACEVEDO MD, was given written information regarding hospital policies, unit procedures and contact persons. Valuables were checked, security called to lock anne away till discharge per Patient's request and other personal items left with her.
[2020-04-04 05:32] VITALS: BP 159/71
[2020-04-04] MEDS ORDERED: METH10TA2 PO (06:35)
[2020-04-04] MEDS ORDERED: DULO40CA2 PO (06:43)
[2020-04-04] MEDS ORDERED: MELO7.5T29 PO (06:43)
[2020-04-04] MEDS ORDERED: GABA600T7 PO (06:43)
[2020-04-04] MEDS ORDERED: DEXTROSE 50% 25 GM / 50ML DISP.SYRIN. IV PRN (06:45)
[2020-04-04 07:00] VITALS: BP 166/72
[2020-04-04] MEDS: INSULIN LISPRO 300 UNITS/3 ML VIAL. SQ SCH ×3 (08:26→17:33)
[2020-04-04] MEDS: AZITHROMYCIN 250 MG TABLET. PO SCH (08:27)
[2020-04-04] MEDS: DEXAMETHASONE SOD PHOS 4 MG/ML VIAL IVP SCH (08:27)
[2020-04-04 11:00] VITALS: BP 149/69
--- NOTE | 2020-04-04 13:12 | PDOC2 ---
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 Rayo SOURCE Source: Chart review, Patient HISTORY OF PRESENT ILLNESS HISTORY OF PRESENT ILLNESS This is an 80 yo female who presented secondary to shortness of breath. Has been present for the last several days. Has progressively worsened. Initially started with LE edema. Then developed swelling in her hands. Eventually developed shortness of breath, especially with exertion. Denies any chest pain, pal pitations, dizziness, diaphoresis, or nausea/vomiting. No known COVID exposure or fevers. PAST MEDICAL HISTORY Cardiovascular: HTN, Hyperlipidemia Heme/Onc: Cancer (lung ) Musculoskeletal: Osteoarthritis Endocrine: Diabetes PAST SURGICAL HISTORY Past Surgical History: Cholecystectomy, Total knee replacement (bilateral ), Hysterectomy FAMILY HISTORY Family History: Hypertension SOCIAL HISTORY Smoke: Quit ALCOHOL: none Drugs: None Lives: Alone CURRENT MEDICATIONS CURRENT MEDICATIONS Current Medications Medications (Trade) Dose Ordered Sig/Silvio Route PRN Reason Start Time Stop Time Status Last Admin Dose Admin Furosemide (Lasix) 40 mg 1X ONCE IVP 04/03/20 21:00 04/03/20 21:01 DC 04/03/20 21:03 Aspirin (Aspirin Chewable) 324 mg 1X ONCE PO 04/03/20 21:00 04/03/20 21:01 DC 04/03/20 21:03 Iohexol (Omnipaque 350 Mg/ml) 100 ml 1X ONCE IV 04/03/20 21:00 04/03/20 21:01 DC 04/03/20 22:08 Dexamethasone Sodium Phosphate (Decadron) 6 mg DAILY IVP 04/03/20 21:30 04/04/20 08:27 Ceftriaxone Sodium (Rocephin) 1 gm 1X ONCE IVP 04/03/20 22:00 04/03/20 22:01 DC 04/03/20 22:39 Azithromycin 250 ml @ 250 mls/hr 1X ONCE IV 04/03/20 22:00 04/03/20 22:59 DC 04/03/20 22:40 Azithromycin (Zithromax) 250 mg DAILY PO 04/04/20 09:00 04/08/20 08:59 04/04/20 08:27 Insulin Human Lispro (HumaLOG) 0-5 UNITS TIDWMEALS SQ 12/28/20 08:00 04/04/20 12:29 ALLERGIES ALLERGIES: Coded Allergies: Penicillins (Verified Allergy, Intermediate, 11/25/13) tramadol (Verified Allergy, Intermediate, Tolerates Lortab/OxyContin at home, 02/19/15) ROS Review of System 14 point ROS conducted with pertinent positives noted above in hPI PHYSICAL EXAM General: Alert, Oriented X3, Cooperative, No acute distress HEENT: Atraumatic, Mucous membr. moist/pink Lungs: Other (on NC ) Heart: Regular rate Abdomen: Soft, No tenderness Extremities: Other (trace bilateral LE edema ) Skin: No significant lesion Neuro: Normal speech, Sensation intact Psych/Mental Status: Mental status NL, Mood NL MUSCULOSKELETAL: Osteoarthritic changes both hands VITALS/I&O VITALS/I&O: Vital Signs Date Time Temp Pulse Resp B/P (MAP) Pulse Ox O2 Delivery O2 Flow Rate FiO2 04/04/20 11:00 96.8 89 12 149/69 (95) 88 Room Air 96.8 04/04/20 08:00 1.5 I & O 04/03/20 04/03/20 04/04/20 15:00 23:00 07:00 Intake Total 250 ml Output Total 0 ml Balance 250 ml LABS Lab: Laboratory Tests Test 04/03/20 19:42 04/03/20 20:06 04/03/20 22:36 04/04/20 01:25 White Blood Count 4.0 x10^3/uL (4.0-11.0) Red Blood Count 4.14 x10^6/uL (3.50-5.40) Hemoglobin 11.6 g/dL (12.0-15.5) L Hematocrit 35.8 % (36.0-47.0) L Mean Corpuscular Volume 87 fL (79-100) Mean Corpuscular Hemoglobin 28 pg (25-35) Mean Corpuscular Hemoglobin Concent 32 g/dL (31-37) Red Cell Distribution Width 15.6 % (11.5-14.5) H Platelet Count 230 x10^3/uL (140-400) Neutrophils (%) (Auto) 57 % (31-73) Lymphocytes (%) (Auto) 32 % (24-48) Monocytes (%) (Auto) 8 % (0-9) Eosinophils (%) (Auto) 3 % (0-3) Basophils (%) (Auto) 1 % (0-3) Neutrophils # (Auto) 2.2 x10^3/uL (1.8-7.7) Lymphocytes # (Auto) 1.3 x10^3/uL (1.0-4.8) Monocytes # (Auto) 0.3 x10^3/uL (0.0-1.1) Eosinophils # (Auto) 0.1 x10^3/uL (0.0-0.7) Basophils # (Auto) 0.0 x10^3/uL (0.0-0.2) Lactic Acid Level 1.1 mmol/L (0.4-2.0) Prothrombin Time 13.8 SEC (11.7-14.0) Prothrombin Time INR 1.1 (0.8-1.1) Activated Partial Thromboplast Time 35 SEC (24-38) D-Dimer (Nakia) 1.82 ug/mlFEU (0.00-0.50) H Sodium Level 139 mmol/L (136-145) Potassium Level 3.9 mmol/L (3.5-5.1) Chloride Level 105 mmol/L (98-107) Carbon Dioxide Level 27 mmol/L (21-32) Anion Gap 7 (6-14) Blood Urea Nitrogen 12 mg/dL (7-20) Creatinine 0.8 mg/dL (0.6-1.0) Estimated GFR (Cockcroft-Gault) 69.0 BUN/Creatinine Ratio 15 (6-20) Glucose Level 124 mg/dL (70-99) H Calcium Level 9.8 mg/dL (8.5-10.1) Total Bilirubin 0.5 mg/dL (0.2-1.0) Aspartate Amino Transferase (AST) 16 U/L (15-37) Alanine Aminotransferase (ALT) 13 U/L (14-59) L Alkaline Phosphatase 104 U/L (46-116) Troponin I Quantitative < 0.017 ng/mL (0.000-0.055) < 0.017 ng/mL (0.000-0.055) < 0.017 ng/mL (0.000-0.055) AU-Ary-P-Type Natriuretic Peptide 1367 pg/mL (0-449) H Total Protein 6.0 g/dL (6.4-8.2) L Albumin 3.1 g/dL (3.4-5.0) L Albumin/Globulin Ratio 1.1 (1.0-1.7) Test 04/04/20 07:55 04/04/20 12:02 Glucose (Fingerstick) 166 mg/dL (70-99) H 207 mg/dL (70-99) H Laboratory Tests 04/03/20 19:42 Laboratory Tests 04/03/20 20:06 ASSESSMENT/PLAN ASSESSMENT/PLAN 1. Acute respiratory failure with a/c CHF 2. Acute on chronic probable diastolic CHF; improved with diuresis 3. Hypertension; mildly elevated 4. Hyperlipidemia; statin 5. Diabetes, II 6. PUI 7. Elevated d-dimer; CTA negative for PE Recommendations Diuresis with monitoring of labs Echo if COVID negative Resume home antiHTN therapy and titrate as warranted Consider outpatient ischemic evaluation JOEY BAJWA MD 04/05/20 1033: CARDIAC CONSULT ASSESSMENT/PLAN ASSESSMENT/PLAN Patient seen and examined 04/04/2020. Agree with CLINICAL ENGINEERING DIRECTOR's assessment and plan. Acute on chronic diastolic heart failure better compensated with diuresis. Resume home antihypertensives and titrate for better blood pressure control. Agree with 2D echocardiogram if Covid negative and plan for outpatient ischemic evaluation. Thank you for your consultation CHICO DEJESUS APRN Apr 04, 2020 13:12 JOEY BAJWA MD Apr 05, 2020 10:33
--- NOTE | 2020-04-04 14:01 | PDOC ---
[employer] PROGRESS NOTE Date of Service DOS: DATE: 04/04/20 TIME: 13:58 Chief Complaint Chief Complaint Acute respiratory failure with hypoxia CAP COVID-19 PUI RLE cellulitis Elevated D-dimer DM2 with hyperglycemia Malnutrition Plan: Will admit patient continue treatment with Rocephin and Azithromycin Rocephin will also cover for RLE cellulitis Supportive care with supplemental oxygen and dexamethasone COVID-19 pending; if positive will consider treatment with remdesivir Consultation placed to cardiology; echocardiogram pending; received Lasix 40 mg x 1 in ED Patient currently breathing on 2 L oxygen. Will wean O2 and evaluate oxygen requirement with 6-minute walk Ultrasound right lower extremity negative for DVT FEN - ADA diet PPX - Lovenox FULL CODE Dispo - inpatient for above History of Present Illness History of Present Illness 04/04/2020 No acute events overnight patient is actually saturating 95% on room air. Was given Lasix upon arrival. No complaints voiced at this time. No dyspnea upon rest. Patient does take methadone 10 mg daily because she was on oxycodone after her surgery for lobectomy for her lung cancer. 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 Therefore, her PCP has placed her on methadone treatments. She will likely need to follow-up closely with her PCP in order to slowly come off of methadone. Patient's chart, labs, images were reviewed and discussed with RN 80-year-old female with past medical history lung cancer, who presents to the ER with complaint of worsening shortness of breath, cough, nausea, and bilateral lower extremities for swelling over the past few days. She states her swelling has been greater in her right lower extremity, with some associated pain and erythema. She reports aching pain, 6/10. Right lower extremity pain is worse with palpation and dorsiflexion of her right foot. Her shortness of breath is aggravated with exertion. She denies any sick contacts or known COVID-19 exposure. Ultrasound obtained in the ER negative for DVT. Chest x-ray on admission showing likely infiltrate in left lung base. Will admit patient for further medical management. Vitals/I&O Vitals/I&O: Vital Signs Date Time Temp Pulse Resp B/P (MAP) Pulse Ox O2 Delivery O2 Flow Rate FiO2 04/04/20 11:00 96.8 89 12 149/69 (95) 88 Room Air 96.8 04/04/20 08:00 1.5 I & O 04/03/20 04/03/20 04/04/20 15:00 23:00 07:00 Intake Total 250 ml Output Total 0 ml Balance 250 ml Physical Exam General: Alert, Oriented X3, Cooperative Heart: Regular rate Lungs: Clear, Other Abdomen: No tenderness Extremities: No edema Skin: No significant lesion Labs Labs: Laboratory Tests Test 04/03/20 19:42 04/03/20 20:06 04/03/20 22:36 04/04/20 01:25 White Blood Count 4.0 x10^3/uL (4.0-11.0) Red Blood Count 4.14 x10^6/uL (3.50-5.40) Hemoglobin 11.6 g/dL (12.0-15.5) Hematocrit 35.8 % (36.0-47.0) Mean Corpuscular Volume 87 fL (79-100) Mean Corpuscular Hemoglobin 28 pg (25-35) Mean Corpuscular Hemoglobin Concent 32 g/dL (31-37) Red Cell Distribution Width 15.6 % (11.5-14.5) Platelet Count 230 x10^3/uL (140-400) Neutrophils (%) (Auto) 57 % (31-73) Lymphocytes (%) (Auto) 32 % (24-48) Monocytes (%) (Auto) 8 % (0-9) Eosinophils (%) (Auto) 3 % (0-3) Basophils (%) (Auto) 1 % (0-3) Neutrophils # (Auto) 2.2 x10^3/uL (1.8-7.7) Lymphocytes # (Auto) 1.3 x10^3/uL (1.0-4.8) Monocytes # (Auto) 0.3 x10^3/uL (0.0-1.1) Eosinophils # (Auto) 0.1 x10^3/uL (0.0-0.7) Basophils # (Auto) 0.0 x10^3/uL (0.0-0.2) Lactic Acid Level 1.1 mmol/L (0.4-2.0) Prothrombin Time 13.8 SEC (11.7-14.0) Prothromb Time International Ratio 1.1 (0.8-1.1) Activated Partial Thromboplast Time 35 SEC (24-38) D-Dimer (Nakia) 1.82 ug/mlFEU (0.00-0.50) Sodium Level 139 mmol/L (136-145) Potassium Level 3.9 mmol/L (3.5-5.1) Chloride Level 105 mmol/L (98-107) Carbon Dioxide Level 27 mmol/L (21-32) Anion Gap 7 (6-14) Blood Urea Nitrogen 12 mg/dL (7-20) Creatinine 0.8 mg/dL (0.6-1.0) Estimated GFR (Cockcroft-Gault) 69.0 BUN/Creatinine Ratio 15 (6-20) Glucose Level 124 mg/dL (70-99) Calcium Level 9.8 mg/dL (8.5-10.1) Total Bilirubin 0.5 mg/dL (0.2-1.0) Aspartate Amino Transf (AST/SGOT) 16 U/L (15-37) Alanine Aminotransferase (ALT/SGPT) 13 U/L (14-59) Alkaline Phosphatase 104 U/L (46-116) Troponin I Quantitative < 0.017 ng/mL (0.000-0.055) < 0.017 ng/mL (0.000-0.055) < 0.017 ng/mL (0.000-0.055) LQ-Ude-Z-Type Natriuretic Peptide 1367 pg/mL (0-449) Total Protein 6.0 g/dL (6.4-8.2) Albumin 3.1 g/dL (3.4-5.0) Albumin/Globulin Ratio 1.1 (1.0-1.7) Test 04/04/20 07:55 04/04/20 12:02 Glucose (Fingerstick) 166 mg/dL (70-99) 207 mg/dL (70-99) Assessment and Plan Assessmemt and Plan Problems Medical Problems: (1) Bilateral lower extremity edema Status: Acute (2) CAP (community acquired pneumonia) Status: Acute (3) CHF (congestive heart failure) Status: Acute (4) Dyspnea Status: Acute Comment Review of Relevant I have reviewed the following items georgi (where applicable) has been applied. Medications: Current Medications Medications (Trade) Dose Ordered Sig/Silvio Route PRN Reason Start Time Stop Time Status Last Admin Dose Admin Furosemide (Lasix) 40 mg 1X ONCE IVP 04/03/20 21:00 04/03/20 21:01 DC 04/03/20 21:03 Aspirin (Aspirin Chewable) 324 mg 1X ONCE PO 04/03/20 21:00 04/03/20 21:01 DC 04/03/20 21:03 Iohexol (Omnipaque 350 Mg/ml) 100 ml 1X ONCE IV 04/03/20 21:00 04/03/20 21:01 DC 04/03/20 22:08 Dexamethasone Sodium Phosphate (Decadron) 6 mg DAILY IVP 04/03/20 21:30 04/04/20 08:27 Ceftriaxone Sodium (Rocephin) 1 gm 1X ONCE IVP 04/03/20 22:00 04/03/20 22:01 DC 04/03/20 22:39 Azithromycin 250 ml @ 250 mls/hr 1X ONCE IV 04/03/20 22:00 04/03/20 22:59 DC 04/03/20 22:40 Azithromycin (Zithromax) 250 mg DAILY PO 04/04/20 09:00 04/08/20 08:59 04/04/20 08:27 Insulin Human Lispro (HumaLOG) 0-5 UNITS TIDWMEALS SQ 04/04/20 08:00 04/04/20 12:29 Justifications for Admission Other Justification CAP, Acute respiratory failure DAVID BISHOP MD Apr 04, 2020 14:01
[2020-04-04 15:00] VITALS: BP 147/73
--- NOTE | 2020-04-04 15:09 | NUR ---
SW following for discharge planning. Spoke with RN and reviewed chart. Pt COVID pending. Pt on 2l 02, cardiac diet. Pt from home with spouse and step-son. Spoke with pt. PT recommendation for HH. Pt agreeable and stated no preference in provider. HH referral to [facility]. Patient choice of vendor form completed. Pt sated no home 02. Possible 6 min walk needed prior to discharge. SW following.
[2020-04-04] MEDS: METHADONE 5 MG TABLET. PO SCH ×2 (16:02→21:35)
[2020-04-04] MEDS: DULoxetine HCL 30 MG CAPSULE.DR PO SCH (16:03)
[2020-04-04] MEDS: METOPROLOL SUCC 24HR ER 50 MG TAB.ER.24H. PO SCH (17:31)
[2020-04-04 19:00] VITALS: BP 153/95
[2020-04-04] MEDS ORDERED: ATORVASTATIN CALCIUM 20 MG TABLET PO SCH (21:00)
[2020-04-04] MEDS ORDERED: METHADONE 10 MG TABLET. PO SCH (21:00)
[2020-04-04] MEDS ORDERED: cefTRIAXone IV Push 1 GM VIAL. IVP SCH (21:00)
[2020-04-04] MEDS: GABAPENTIN 300 MG CAPSULE. PO SCH (21:34)
[2020-04-04] MEDS: ENOXAPARIN 40 MG/0.4 ML SYRINGE. SQ SCH (21:36)
[2020-04-04 22:08] LABS: HEMOGLOBIN A1C 7.1 % (4.8-5.6)
[2020-04-04 23:00] VITALS: BP 154/75
[2020-04-05 03:00] VITALS: BP 172/70
[2020-04-05 07:00] VITALS: BP 137/56
[2020-04-05] MEDS: INSULIN LISPRO 300 UNITS/3 ML VIAL. SQ SCH ×3 (08:20→17:28)
[2020-04-05] MEDS: AZITHROMYCIN 250 MG TABLET. PO SCH (08:23)
[2020-04-05] MEDS: METHADONE 5 MG TABLET. PO SCH ×2 (08:24→17:26)
[2020-04-05] MEDS: DULoxetine HCL 30 MG CAPSULE.DR PO SCH (08:25)
[2020-04-05] MEDS: GABAPENTIN 300 MG CAPSULE. PO SCH ×2 (08:25→17:26)
[2020-04-05] MEDS: DEXAMETHASONE SOD PHOS 4 MG/ML VIAL IVP SCH (08:25)
[2020-04-05] MEDS: METOPROLOL SUCC 24HR ER 50 MG TAB.ER.24H. PO SCH (08:26)
[2020-04-05] MEDS ORDERED: METOPROLOL SUCC 24HR ER 50 MG TAB.ER.24H. PO SCH (09:00)
[2020-04-05] MEDS ORDERED: DULoxetine HCL 30 MG CAPSULE.DR PO SCH (09:00)
[2020-04-05] MEDS ORDERED: LIDOCAINE (700MG/PATCH) PATCH. TP SCH (09:00)
[2020-04-05] MEDS ORDERED: CHOLECALCIFEROL (VITAMIN D3) 1,000 UNIT TABLET PO SCH (09:00)
[2020-04-05] MEDS ORDERED: SODIUM CHLORIDE 0.65% NASAL SPRAY 45ML BOTTLE. NS PRN (10:15)
[2020-04-05 11:00] VITALS: BP 146/56
[2020-04-05] MEDS ORDERED: FLUTICASONE 50MCG/NASAL SPRAY 16GM BOTTLE. NS SCH (11:00)
--- NOTE | 2020-04-05 12:37 | PDOC ---
CHICO DEJESUS APRN 04/05/20 1237: CARDIO Progress Notes Date and Time Date of Service 04/05/20 Time of Evaluation 1230 Subjective Subjective: No Chest Pain, No shortness of breath, Other (breathing much improved today) Vitals Vitals Vital Signs Date Time Temp Pulse Resp B/P (MAP) Pulse Ox O2 Delivery O2 Flow Rate FiO2 04/05/20 08:26 62 137/51 04/05/20 08:24 18 98 Nasal Cannula 2.0 04/05/20 07:00 96.8 96.8 Weight Weight [ ] Input and Output Intake and Output Intake and Output 04/05/20 07:00 Intake Total 1040 ml Balance 1040 ml Intake Oral 1040 ml # Voids 3 Laboratory Labs Laboratory Tests Test 04/04/20 17:28 04/04/20 20:09 04/05/20 07:58 04/05/20 12:16 Glucose (Fingerstick) 242 mg/dL (70-99) 230 mg/dL (70-99) 153 mg/dL (70-99) 213 mg/dL (70-99) Microbiology Micro Microbiology 04/03/20 Blood Culture - Preliminary, Resulted NO GROWTH AFTER 1 DAY Physical Exam HEENT: Neck Supple W Full Motion Chest: Symmetric LUNGS: Clear to Auscultation Heart: RRR Abdomen: Soft N/T Extremities: No Edema Neurology: alert, oriented, follow commands Assessment Assessment 1. Acute respiratory failure with a/c CHF 2. Acute on chronic probable diastolic CHF; improved with diuresis. appears compensated. Echo with preserved LV systolic function 3. Hypertension; mildly elevated 4. Hyperlipidemia; statin 5. Diabetes, II 6. PUI; COVID negative 7. Elevated d-dimer; CTA negative for PE Recommendations Discussed 2Gm Na diet and 2000cc FR Continue current home anti HTN therapy Outpatient ischemic evaluation with stress test as arranged Follow up in our office with Dr. Haile as scheduled Justicifation of Admission Dx: Justifications for Admission: Justification of Admission Dx: Yes Comments: Acute on chronic CHF JOEY HAILE MD 04/05/203: CARDIO Progress Notes Assessment Assessment Patient seen and examined. Agree with GROUP ART SUPERVISOR's assessment and plan. Acute on chronic diastolic heart failure better compensated with diuresis. BP better controlled. 2D echo showed normal LVF. Plan outpatient ischemic evaluation. CHICO DEJESUS APRN Apr 05, 2020:37 JOEY HAILE MD Apr 05, 2020 19:03
--- NOTE | 2020-04-05 13:53 | PDOC ---
[employer] PROGRESS NOTE Date of Service DOS: DATE: 04/05/20 TIME: 13:52 Chief Complaint Chief Complaint Acute respiratory failure with hypoxia CAP COVID-19 PUI RLE cellulitis Elevated D-dimer DM2 with hyperglycemia Malnutrition Plan: Will admit patient continue treatment with Rocephin and Azithromycin Rocephin will also cover for RLE cellulitis Supportive care with supplemental oxygen and dexamethasone COVID-19 pending; if positive will consider treatment with remdesivir Consultation placed to cardiology; echocardiogram pending; received Lasix 40 mg x 1 in ED Patient currently breathing on 2 L oxygen. Will wean O2 and evaluate oxygen requirement with 6-minute walk Ultrasound right lower extremity negative for DVT FEN - ADA diet PPX - Lovenox FULL CODE Dispo - inpatient for above History of Present Illness History of Present Illness 04/05/2020 No acute events overnight. Patient seen and examined bedside. Saturating 98% on 2 L nasal cannula. Pending echocardiogram today. Patient does have some postnasal drip and cough at night when she goes to sleep. Will administer nasal saline wash and rinse with fluticasone spray. Pending 6-minute walk test before discharge. Patient's chart, labs, images were reviewed and discussed with RN 04/04/2020 No acute events overnight patient is actually saturating 95% on room air. Was given Lasix upon arrival. No complaints voiced at this time. No dyspnea upon rest. Patient does take methadone 10 mg daily because she was on oxycodone after her surgery for lobectomy for her lung cancer. 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 Therefore, her PCP has placed her on methadone treatments. She will likely need to follow-up closely with her PCP in order to slowly come off of methadone. Patient's chart, labs, images were reviewed and discussed with RN 80-year-old female with past medical history lung cancer, who presents to the ER with complaint of worsening shortness of breath, cough, nausea, and bilateral lower extremities for swelling over the past few days. She states her swelling has been greater in her right lower extremity, with some associated pain and erythema. She reports aching pain, 6/10. Right lower extremity pain is worse with palpation and dorsiflexion of her right foot. Her shortness of breath is aggravated with exertion. She denies any sick contacts or known COVID-19 exposure. Ultrasound obtained in the ER negative for DVT. Chest x-ray on admission showing likely infiltrate in left lung base. Will admit patient for further medical management. Vitals/I&O Vitals/I&O: Vital Signs Date Time Temp Pulse Resp B/P (MAP) Pulse Ox O2 Delivery O2 Flow Rate FiO2 04/05/20 09:25 20 98 Nasal Cannula 1.5 04/05/20 08:26 62 137/51 04/05/20 07:00 96.8 96.8 I & O 04/04/20 04/04/20 04/05/20 15:00 23:00 07:00 Intake Total 400 ml 320 ml 320 ml Balance 400 ml 320 ml 320 ml Physical Exam General: Alert, Oriented X3, Cooperative, No acute distress Heart: Regular rate Lungs: Clear, Other Abdomen: Soft, No tenderness Extremities: Other (trace bilateral LE edema ) Skin: No significant lesion Labs Labs: Laboratory Tests Test 04/04/20 17:28 04/04/20 20:09 04/05/20 07:58 04/05/20 12:16 Glucose (Fingerstick) 242 mg/dL (70-99) 230 mg/dL (70-99) 153 mg/dL (70-99) 213 mg/dL (70-99) Assessment and Plan Assessmemt and Plan Problems Medical Problems: (1) Bilateral lower extremity edema Status: Acute (2) CAP (community acquired pneumonia) Status: Acute (3) CHF (congestive heart failure) Status: Acute (4) Dyspnea Status: Acute Comment Review of Relevant I have reviewed the following items georgi (where applicable) has been applied. Medications: Current Medications Medications (Trade) Dose Ordered Sig/Silvio Route PRN Reason Start Time Stop Time Status Last Admin Dose Admin Ceftriaxone Sodium (Rocephin) 1 gm HS IVP 04/04/20 21:00 04/04/20 21:36 Atorvastatin Calcium (Lipitor) 20 mg HS PO 04/04/20 21:00 04/04/20 21:35 Vitamin D (Vitamin D3) 1,000 unit DAILY PO 04/05/20 09:00 04/05/20 08:23 Lidocaine (Lidoderm) 1 patch DAILY TP 04/05/20 09:00 04/05/20 08:27 Gabapentin (Neurontin) 300 mg TID PO 04/04/20 21:00 04/05/20 08:25 Methadone HCl (Dolophine) 10 mg TID PO 04/04/20 16:00 04/05/20 08:24 Duloxetine HCl (Cymbalta) 60 mg DAILY PO 04/04/20 16:00 04/05/20 08:25 Metoprolol Succinate (Toprol Xl) 50 mg DAILY PO 04/04/20 16:15 04/05/20 08:26 Fluticasone Propionate (Flonase) 2 spray DAILY NS 04/05/20 11:00 04/05/20 13:25 Justifications for Admission Other Justification CAP, Acute respiratory failure DAVID BISHOP MD Apr 05, 2020 13:53
--- NOTE | 2020-04-05 14:25 | CARD ---
MR#: [id number] Date of Study: 04/05/2020 Ordering Physician: DIAMOND ACEVEDO, Referring Physician: DIAMOND ACEVEDO Tech: Aisha Cunningham [place] APPROVED REPORT EXAM: Two-dimensional and M-mode echocardiogram with Doppler and color Doppler. Other Information Quality : FairHR: 68bpm Rhythm : NSR INDICATION Dyspnea Congestive Heart Failure RISK FACTORS Obesity 2D DIMENSIONS RVDd3.2 (2.9-3.5cm)Left Atrium(2D)3.6 (1.6-4.0cm) IVSd0.9 (0.7-1.1cm)Aortic Root(2D)2.4 (2.0-3.7cm) LVDd4.3 (3.9-5.9cm)LVOT Diameter2.1 (1.8-2.4cm) PWd1.1 (0.7-1.1cm)LVDs2.9 (2.5-4.0cm) FS (%) 31.4 %SV49.1 ml LVEF(%)59.6 (>50%) Aortic Valve AoV Peak John.174.5cm/sAoV VTI41.8cm AO Peak GR.12.2mmHgLVOT Peak John.124.7cm/s AO Mean GR.5mmHgAVA (VMAX)2.47cm2 Mitral Valve MV E Plzheocr625.1cm/sMV DECEL [id number] MV A Etxnndnw23.3cm/sE/A Ratio1.1 Pulmonary Valve PV Peak Fakbuesa30.4cm/s Tricuspid Valve TR P. Xiztrwmi647nx/sTR Peak Gr.29mmHg LEFT VENTRICLE The left ventricle is normal size. There is normal left ventricular wall thickness. The left ventricu lar systolic function is normal. Estimated ejection fraction 65-70% There is normal LV segmental wall motion. Transmitral Doppler flow pattern is Grade II-pseudonormal filling dynamics. RIGHT VENTRICLE The right ventricle is normal size. There is normal right ventricular wall thickness. The right ventr icular systolic function is normal. ATRIA The left atrium is mildly dilated. The right atrium size is normal. The interatrial septum is intact with no evidence for an atrial septal defect or patent foramen ovale as noted on 2-D or Doppler imagi ng. AORTIC VALVE The aortic valve is normal in structure and function. Doppler and Color Flow revealed no significant aortic regurgitation. There is no significant aortic valvular stenosis. MITRAL VALVE The mitral valve is normal in structure and function. There is no evidence of mitral valve prolapse. There is no mitral valve stenosis. Doppler and Color-flow revealed trace mitral regurgitation. TRICUSPID VALVE The tricuspid valve is normal in structure and function. Doppler and Color Flow revealed trace to mil d tricuspid regurgitation. Estimated PAP 32 mmHg. There is no tricuspid valve stenosis. PULMONIC VALVE The pulmonary valve is normal in structure and function. Doppler and Color Flow revealed no pulmonic valvular regurgitation. GREAT VESSELS The aortic root is normal in size. The IVC is normal in size and collapses >50% with inspiration. PERICARDIAL EFFUSION There is no evidence of significant pericardial effusion. Critical Notification Critical Value: No <Conclusion> The left ventricular systolic function is normal. Estimated ejection fraction 65-70% There is normal LV segmental wall motion. Transmitral Doppler flow pattern is Grade II-pseudonormal filling dynamics. Trace mitral regurgitation. Trace to mild tricuspid regurgitation. Estimated PAP 32 mmHg. There is no evidence of significant pericardial effusion. Signed by : Dash Haile, Electronically Approved : 04/05/2020 14:25:21
[2020-04-05 15:00] VITALS: BP 142/52
[2020-04-05] MEDS ORDERED: AZIT500T4 PO (15:39)
[2020-04-05] MEDS ORDERED: AMOX1TAB58 PO (15:39)
--- NOTE | 2020-04-05 15:40 | DISCH ---
DISCHARGE INSTRUCTIONS Condition on Discharge Condition on Discharge: Stable (You will need to stay on 2 L oxygen via nasal cannula during activity) Activity After Discharge Activity Instructions for Disc: Activity as tolerated Bathing Instructions: Shower-keep dressing dry Lifting Instructions after Dis: No heavy lifting, Do not lift >10 pounds Exercise Instruction after Dis: Walk 10 min, 3 x per day, Walk 30 min, 3 x per week Driving Instructions after Dis: Do not drive Weight Bearing Status after Di: As tolerated Diet after Discharge Diet after Discharge: Diabetic No Calorie Level Diet Texture: Regular Liquid Texture: Thin Liquid Swallowing Supervision: None needed Checks after Discharge Checks after discharge: Check blood press - daily Contacting the DR. after DC Call your doctor for: Fever greater than 100 Follow-Up Follow up with: PCP within 2 weeks of discharge Follow Up With: Cardiology as needed regarding your echocardiogram results Treatment/Equipment after DC Adaptive Equipment Issued: None Discharge Respiratory Equipmen: Oxygen DAVID BISHOP MD Apr 05, 2020 15:40
--- NOTE | 2020-04-05 16:41 | SNU/HH DC ---
DISCHARGE WITH HOME HEALTH DISCHARGE INFORMATION: Discharge Date: Apr 05, 2020 Final Diagnosis: Problems Medical Problems: (1) Bilateral lower extremity edema Status: Acute (2) CAP (community acquired pneumonia) Status: Acute (3) CHF (congestive heart failure) Status: Acute (4) Dyspnea Status: Acute Condition on Discharge: Stable (You will need to stay on 2 L oxygen via nasal cannula during activity) HOME HEALTH: Face to Face: I certify this patient is under my care and that I, or a nurse practitioner or physician's psychologist research assistant working with me, had a face to face encounter that meets the physician face to face encounter requirements with this patient on []. RN For Eval/Treatment: Yes Physical Therapy For: Evalulation/Treatment Occupational Therapy For: Evaluation/Treatment SPECIMEN PREPARATION ASSISTANT For: Community Resources Pt Meets Homebound Status: Poor coordination w/ amb., Fatigue w/ amb., Limited distance walking POST DISCHARGE ORDERS: Activity Instructions for Disc: Activity as tolerated Weight Bearing Status after Di: As tolerated Bathing Instructions: Shower-keep dressing dry CHECKS AFTER DISCHARGE: Checks after discharge: Check blood press - daily FOLLOW-UP: Follow up with: PCP within 2 weeks of discharge Follow Up With: Cardiology as needed regarding your echocardiogram results TREATMENT/EQUIPMENT ORDERS: Adaptive Equipment Issued: None Discharge Respiratory Equipmen: Oxygen CERTIFICATION STATEMENT: Certification Statement: Certification Statement: Based on the above finding, I certify that this patient is confined to the home and needs intermittent senior care care, physical therapy and/or speech therapy, or continues to need occupational therapy.~ This patient is under my care, and I have initiated the establishment of the plan of care.~ This patient will be followed by myself or a community physician who will periodically review the plan of care. Home Meds Active Scripts Azithromycin (AZITHROMYCIN TABLET) 500 Mg Tablet, 1 TAB PO DAILY for pneumonia for 3 Days, #3 TAB 0 Refills Prov:DAVDI BISHOP MD 04/05/20 Amoxicillin/Potassium Clav (AUGMENTIN 500-125 TABLET) 1 Each Tablet, 1 TAB PO BID for pneumonia for 3 Days, #6 TAB 0 Refills Prov:DAVID BISHOP MD 04/05/20 Reported Medications Gabapentin (GABAPENTIN) 600 Mg Tablet, 300 MG PO TID for NEUROGENIC PAIN, TAB 04/04/20 Duloxetine HCl (Duloxetine HCl) 40 Mg Capsule.dr, 60 MG PO DAILY for depression, CAP 12/28/20 Meloxicam (MELOXICAM) 7.5 Mg Tablet, 1 TAB PO DAILY for aurthritis for 30 Days, #30 TAB 0 Refills 04/04/20 Methadone Hcl (METHADONE HCL) 10 Mg Tablet, 1 TAB PO TID for pain, #90 TAB 04/04/20 Lidocaine (LIDODERM) 700 Mg Adh..patch, 1 PATCH TP DAILY, #30 PATCH 1 Refill 02/19/15 Cholecalciferol (Vitamin D3) (VITAMIN D3) 1,000 Unit Tablet, 1000 UNIT PO DAILY 11/25/13 Metoprolol Succinate (TOPROL XL) 50 Mg Tab.er.24h, 50 MG PO DAILY 08/28/13 Atorvastatin Calcium (ATORVASTATIN CALCIUM) 20 Mg Tablet, 20 MG PO HS 08/28/13 Discontinued Reported Medications Methadone Hcl (METHADONE HCL) 5 Mg Tablet, 1 TAB PO TID, #90 TAB 04/05/16 Sertraline Hcl (SERTRALINE HCL) 25 Mg Tablet, 25 MG PO DAILY 08/28/13 Lisinopril (LISINOPRIL) 10 Mg Tablet, 10 MG PO DAILY 08/28/13 DAVID BISHOP MD Apr 05, 2020 16:40
--- NOTE | 2020-04-05 16:43 | NUR ---
SW following for discharge planning. Spoke with RN and reviewed chart. Met with pt and pt's daughter. [facility] Discharge ordered phoned and faxed. [facility] updated. 6 min walk results indicate 02 needs with activity. Script and orders phoned and faxed to [facility]. Coordinated care with [facility] for home 02 delivery and setup [facility], 04/05. Tank provided to pt and pt and daughter instructed to call the number on the tank upon arrival home. No further SW needs at this time. Addendum: 04/06/20 at 0944 by RITA NASH SAAD confirmed with Ariana from [facility] that orders were received for HH. [facility] also confirmed 02 setup. No further SW needs.
--- NOTE | 2020-04-05 17:40 | NUR ---
DISCHARGE INSTRUCTIONS GIVEN TO PATIENT/DAUGHTER AT THE BEDSIDE, QUESTIONS AND CONCERNS ANSWERED, PATIENT AND DAUGHTER VERBALIZED UNDERSTANDING OF DISCHARGE INFORMATION INCLUDING TAKING ALL MEDICATIONS INSTRUCTED AND FOLLOWING UP WITH DR. BAJWA AND HER PRIMARY PROVIDER IN 1-2 WEEKS.
--- NOTE | 2020-04-05 18:15 | NUR ---
PATIENT LEAVES THE UNIT PER W/C, PORTABLE OXYGEN TANK PROVIDED BY HUMAN SERVICES ASSISTANT SENT WITH THE PATIENT, EMOTIONAL SUPPORT GIVEN, FOLLOW UP APPOINTMENTS ENCOURAGED.
--- NOTE | 2020-04-05 23:18 | EKG ---
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
== END 2020-04-05 18:15 | disposition home health service (06) | DRG 189 ==
LOC: ER 19:21 → ED HOLD 21:26 → 6 SOUTH 04-04 03:57 → 5 NORTH 04-05 12:10
PROVIDERS: ADMIT Family Medicine; ATTEND Family Medicine
DX: J96.01 Acute respiratory failure with hypoxia (principal); I50.33 Acute on chronic diastolic (congestive) heart failure; J18.9 Pneumonia, unspecified organism; E46 Unspecified protein-calorie malnutrition; L03.115 Cellulitis of right lower limb; I11.0 Hypertensive heart disease with heart failure; E11.65 Type 2 diabetes mellitus with hyperglycemia; M19.90 Unspecified osteoarthritis, unspecified site; E78.5 Hyperlipidemia, unspecified; Z20.828 Contact with and (suspected) exposure to other viral communicable diseases; Z96.653 Presence of artificial knee joint, bilateral; Z82.49 Family history of ischemic heart disease and other diseases of the circulatory system; Z85.118 Personal history of other malignant neoplasm of bronchus and lung; Z87.891 Personal history of nicotine dependence; Z90.49 Acquired absence of other specified parts of digestive tract; Z90.710 Acquired absence of both cervix and uterus; Z88.0 Allergy status to penicillin; Z88.8 Allergy status to other drugs, medicaments and biological substances; Z68.30 Body mass index [BMI] 30.0-30.9, adult
CPT/HCPCS: 36415; 71045; 71275; 80053; 82962; 83036; 83605; 83880; 84484; 85025; 85379; 85610; 85730; 87040; 87449; 93005; 93306; 93970; 94618; 96365; 96366; 96375; 99285; J0456; J0696; J1100; J1650; J1815; J1940; Q9967; U0003; 97530-GO; 97535-GO; G0378

== ENCOUNTER → 2020-04-22 | Outpatient (CLI) | payer MEDICARE, BC ==
[2020-04-05 15:00] VITALS: BP 142/52
[~2020-04-22] MED LIST changes: +AMOX1TAB58 PO; +AZIT500T4 PO; +DULO40CA2 PO; +GABA600T7 PO; +METH10TA2 PO; +REGADENOSON 0.4 MG/5 ML DISP.SYRIN. IV ONE
--- NOTE | 2020-04-22 14:35 | CARD ---
MR#: [id number] Date of Study: 04/22/2020 Ordering Physician: JOEY BAJWA, Referring Physician: JOEY BAJWA, Tech: Mickie Diaz APPROVED REPORT EXAM: Two-dimensional and M-mode echocardiogram with Doppler and color Doppler. Other Information Quality : FairHR: 68bpm Technically limited study due to body habitus. INDICATION Hyperlipidemia RISK FACTORS Diabetes Previous smoker 2D DIMENSIONS RVDd4.5 (2.9-3.5cm)Left Atrium(2D)3.9 (1.6-4.0cm) IVSd1.0 (0.7-1.1cm)Aortic Root(2D)3.0 (2.0-3.7cm) LVDd4.5 (3.9-5.9cm)LVOT Diameter2.1 (1.8-2.4cm) PWd1.0 (0.7-1.1cm)LVDs2.8 (2.5-4.0cm) FS (%) 39.0 %SV65.0 ml LVEF(%)69.5 (>50%) Aortic Valve AoV Peak John.154.9cm/sAoV VTI31.0cm AO Peak GR.9.6mmHgLVOT Peak John.112.2cm/s LVOT VTI 25.74cmAO Mean GR.5mmHg JORGE (VMAX)1.61dv6VMV (VTI)2.81cm2 AI P 1/2 Ecad660cu Mitral Valve MV E Vwwmfuqs73.7cm/sMV DECEL OXVC573le MV A Smxlryfr95.8cm/sMV E Mean Gr.2mmHg MV GYQ85bdE/A Ratio0.7 MVA (PHT)2.46cm2 TDI E/Lateral E'9.6E/Medial E'12.2 Pulmonary Valve PV Peak Ypfnuzkg64.4cm/sPV Peak Grad.4mmHg Tricuspid Valve TR P. Nvbmfsoe248qc/sRAP CHFKLKFI6zjRy TR Peak Gr.51ltRgVVHJ60xfAj Pulmonary Vein S1 Jvhuxnbp26.9cm/sD2 Rcplmogh93.9cm/s PVa tjbvjbfv873vojk LEFT VENTRICLE The left ventricle is normal size. There is normal left ventricular wall thickness. The left ventricu lar systolic function is normal and the ejection fraction is within normal range. The Ejection Fracti on is 55-60%. There is normal LV segmental wall motion. Transmitral Doppler flow pattern is Grade I-a bnormal relaxation pattern. RIGHT VENTRICLE The right ventricle is mildly dilated. There is normal right ventricular wall thickness. The right ve ntricular systolic function is normal. ATRIA The left atrium size is normal. The right atrium size is normal. The interatrial septum is intact wit h no evidence for an atrial septal defect or patent foramen ovale as noted on 2-D or Doppler imaging. AORTIC VALVE The aortic valve is thickened but opens well. Doppler and Color Flow revealed trace aortic regurgitat ion. There is no significant aortic valvular stenosis. Calculated aortic valve area is 2.54 cm2 with maximum pressure gradient of 11 mmHg and mean pressure gradient of 6 mmHg. MITRAL VALVE The mitral valve is normal in structure and function. There is no evidence of mitral valve prolapse. There is no mitral valve stenosis. Doppler and Color Flow revealed no mitral valve regurgitation note d. TRICUSPID VALVE The tricuspid valve is normal in structure and function. Doppler and Color Flow revealed trace tricus pid regurgitation. There is no tricuspid valve stenosis. PULMONIC VALVE The pulmonic valve is not well visualized. Doppler and Color Flow revealed no pulmonic valvular regur gitation. There is no pulmonic valvular stenosis. GREAT VESSELS The aortic root is normal in size. The ascending aorta is normal in size. The IVC is normal in size a nd collapses >50% with inspiration. PERICARDIAL EFFUSION There is no evidence of significant pericardial effusion. Critical Notification Critical Value: No <Conclusion> The left ventricular systolic function is normal and the ejection fraction is within normal range. Th e Ejection Fraction is 55-60%. There is normal LV segmental wall motion. The right ventricle is mildly dilated. Signed by : Armani Sidhu, Electronically Approved : 04/22/2020 14:35:42
--- NOTE | 2020-04-22 14:44 | RAD ---
MR#: [id number] Date of Study: 04/22/2020 Ordering Physician: JOEY BAJWA, Referring Physician: ALEXANDR ENGLISH Tech: OLEGARIO Barber APPROVED REPORT Test Type: Pharmacological Stress Nurse/Tech: Char Gary RN Test Indications: CHF Cardiac History: CHF, HTN, See EMR. Medications: See EMR. Medical History: X-Smoker, See EMR. Resting ECG: SR w/ BBB Resting Heart Rate: 70 bpm Resting Blood Pressure: 149/62mmHg Pretest Chest Pain: No chest pain Nurse/Tech Notes Lungs CTA, Heart tones regular. Consent: The procedure was explained to the patient in lay terms. Informed consent was witnessed. Preston eout was entered into i-nexus. History and Stress Test performed by ARTEMIO Schofield, SCOTT (R) (N) Pharm. Details Pharmacologic stress testing was performed using 0.4mg per 5ml of regadenoson given intravenously ove r 7-10 seconds. Stress Symptoms No chest pain or symptoms. POST EXERCISE Reason for Termination: Infusion complete Max HR: 86 bpm Max Blood Pressure: 154/60mmHg Blood Pressure response to exercise: Normal blood pressure response during stress. Heart Rate response to exercise: WNL Chest Pain: No. Arrhythmia: No. ST Change: No. INTERPRETATION Stress EKG Conclusion: No evidence of stress induced EKG changes. Imaging Protocol IMAGE PROTOCOL: Rest Tc-99m/stress Tc-99m 1 day Rest: Stress: Viability: Radiopharm.Tc99m HkwwiwidxNg52d Sestamibi Mzka03iIq 31mCi Duration 15min. 13.5min. Img Date 04/22/2020 04/22/2020 Inj-Img Pqck77tpw. 60min. Rest Admin Site:IV - Right ForearmAdministrator:OLEGARIO Barber Stress Admin Site: IV - Right ForearmAdministrator: ARTEMIO Schofield, SCOTT (R)(N) STRESS DATA End Diast. Vol.62.0mlLVEDV index BSA34.0ml End Syst. Vol.10.0mlLVESV index BSA5.0ml Myocardial Hbje996.0gEject. Tdppofgi48.0% Stress Scores Regional WT3.00Summed WT11.00 Regional WM0.00Summed WM0.00 The rest and stress images show normal perfusion, normal contraction and thickening. LV Perf. Quant 17 Seg. SSS0.00 17 Seg. SRS0.00 17 Seg. SDS0.00 Stress Defect Extent (% LAD)0.00Rest Defect Extent (% LAD)0.00Rev. Defect Extent (% LAD)0.00 Stress Defect Extent (% LCX) 0.00Rest Defect Extent (% LCX)0.00Rev. Defect Extent (% LCX)0.00 Stress Defect Extent (% RCA)0.00Rest Defect Extent (% RCA)0.00Rev. Defect Extent (% RCA)0.00 Stress Defect Extent (% MILLA)0.00Rest Defect Extent (% MILLA)0.00Rev. Defect Extent (% MILLA)0.00 Other Information Quality:Good Risk Assessment: Low Risk Conclusion 1. No evidence of EKG changes with stress testing. 2. Normal perfusion at stress/rest. 3. Low risk study. 4. EF > 60%. Signed by : Armani Sidhu, Electronically Approved : 04/22/2020 14:43:45
== END ==
LOC: NM 09:29
PROVIDERS: ATTEND Internal Medicine Cardiovascular Disease
DX: I11.0 Hypertensive heart disease with heart failure (principal); Z87.891 Personal history of nicotine dependence
CPT/HCPCS: 78452; 93017; 93306; A9500; J2785

== ENCOUNTER 2020-05-06 19:22 | Emergency (ER) | payer MEDICARE, BC ==
[~2020-05-06] VITALS: Ht 162.6 cm; Wt 76.4 kg
[~2020-05-06 19:22] MED LIST changes: +LISI10TA16 PO; -LISI10TA2 PO; -OMEP40CA45 PO; +OMEP40CA7 PO; -REGADENOSON 0.4 MG/5 ML DISP.SYRIN. IV ONE; +SERT-266 PO; -SERT25TA4 PO
--- NOTE | 2020-05-06 19:48 | ED.ADGEN ---
Past Medical History Past Medical History: Cancer, Other Additional Past Medical Histor: Diabetic"diet controlled,"Hx Lung CA. Past Surgical History: Appendectomy, Cholecystectomy, Hysterectomy, Other Additional Past Surgical Histo: EGD,Lobe of R)lung removed for CA,Bilat knee replacement Smoking Status: Former Smoker Alcohol Use: None Drug Use: None General Adult EDM: Chief Complaint: MECHANICAL FALL HPI: HPI: Patient is a 80 year old male coming in for continued pain and soreness after a fall about 1 week ago. She states she slipped on some sugar in her kitchen and hit her head into the cabinet and hit the countertop. Denies any loss of cons ciousness. Does not take any blood thinners. Complaining of pain to her left shoulder, head, hip. Has been having difficulty ambulating secondary to pain. Denies any weakness or numbness in her lower extremities. Ambulates on her own without a walker Review of Systems: Review of Systems: All other systems within normal limits except for as noted in the HPI Allergies: Allergies: Allergies Coded Allergies Type Severity Reaction Last Updated Verified Penicillins Allergy Intermediate 11/25/13 Yes tramadol Allergy Intermediate Tolerates Lortab/OxyContin at home 02/19/15 Yes Physical Exam: PE: Constitutional: Well developed, well nourished, no acute distress, non-toxic appearance. [] HENT: Normocephalic, atraumatic, bilateral external ears normal, nose normal. [] Eyes: PERRLA, conjunctiva normal, no discharge. [] Neck: No rigidity, supple, no stridor. [] Cardiovascular: Regular rate and rhythm, brisk cap refill [] Lungs & Thorax: Non labored symmetric respirations, no tachypnea or respiratory distress [] Abdomen: Soft, nondistended. Skin: Warm, dry, no erythema, no rash. [] Back: Unremarkable Extremities: No deformities, range of motion grossly intact, no lower extremity edema [] Neurologic: Alert and oriented X 3, no focal deficits noted. [] Psychologic: Affect normal, judgement normal, mood normal. [] Current Patient Data: Labs: Laboratory Tests Test 05/06/20 20:35 05/06/20 21:45 White Blood Count 3.6 x10^3/uL (4.0-11.0) L Red Blood Count 4.10 x10^6/uL (3.50-5.40) Hemoglobin 11.4 g/dL (12.0-15.5) L Hematocrit 34.4 % (36.0-47.0) L Mean Corpuscular Volume 84 fL (79-100) Mean Corpuscular Hemoglobin 28 pg (25-35) Mean Corpuscular Hemoglobin Concent 33 g/dL (31-37) Red Cell Distribution Width 16.1 % (11.5-14.5) H Platelet Count 196 x10^3/uL (140-400) Neutrophils (%) (Auto) 62 % (31-73) Lymphocytes (%) (Auto) 26 % (24-48) Monocytes (%) (Auto) 9 % (0-9) Eosinophils (%) (Auto) 2 % (0-3) Basophils (%) (Auto) 1 % (0-3) Neutrophils # (Auto) 2.3 x10^3/uL (1.8-7.7) Lymphocytes # (Auto) 0.9 x10^3/uL (1.0-4.8) L Monocytes # (Auto) 0.3 x10^3/uL (0.0-1.1) Eosinophils # (Auto) 0.1 x10^3/uL (0.0-0.7) Basophils # (Auto) 0.0 x10^3/uL (0.0-0.2) Sodium Level 137 mmol/L (136-145) Potassium Level 4.4 mmol/L (3.5-5.1) Chloride Level 102 mmol/L (98-107) Carbon Dioxide Level 29 mmol/L (21-32) Anion Gap 6 (6-14) Blood Urea Nitrogen 19 mg/dL (7-20) Creatinine 0.8 mg/dL (0.6-1.0) Estimated GFR (Cockcroft-Gault) 69.0 BUN/Creatinine Ratio 24 (6-20) H Glucose Level 113 mg/dL (70-99) H Lactic Acid Level 1.1 mmol/L (0.4-2.0) Calcium Level 9.7 mg/dL (8.5-10.1) Total Bilirubin 0.5 mg/dL (0.2-1.0) Aspartate Amino Transferase (AST) 15 U/L (15-37) Alanine Aminotransferase (ALT) 18 U/L (14-59) Alkaline Phosphatase 110 U/L (46-116) Troponin I Quantitative < 0.017 ng/mL (0.000-0.055) IY-Ajf-B-Type Natriuretic Peptide 902 pg/mL (0-449) H Total Protein 6.3 g/dL (6.4-8.2) L Albumin 2.9 g/dL (3.4-5.0) L Albumin/Globulin Ratio 0.9 (1.0-1.7) L Urine Collection Type U cath Urine Color Yellow Urine Clarity Clear Urine pH 5.5 (<5.0-8.0) Urine Specific [place] 1.015 (1.000-1.030) Urine Protein Negative mg/dL (NEG-TRACE) Urine Glucose (UA) Negative mg/dL (NEG) Urine Ketones (Stick) Negative mg/dL (NEG) Urine Blood Negative (NEG) Urine Nitrite Negative (NEG) Urine Bilirubin Negative (NEG) Urine Urobilinogen Dipstick 0.2 mg/dL (0.2 mg/dL) Urine Leukocyte Esterase Moderate (NEG) Urine RBC 1-2 /HPF (0-2) Urine WBC 5-10 /HPF (0-4) Urine Bacteria 0 /HPF (0-FEW) Urine Mucus Slight /LPF Laboratory Tests 05/06/20 20:35 Laboratory Tests 05/06/20 20:35 Vital Signs: Vital Signs Date Time Temp Pulse Resp B/P (MAP) Pulse Ox O2 Delivery O2 Flow Rate FiO2 05/06/20 19:30 100.0 78 16 154/72 (99) 94 Room Air 100.0 EKG: EKG: [] Heart Score: Risk Factors: Risk Factors: DM, Current or recent (<one month) smoker, HTN, HLP, family history of CAD, obesity. Risk Scores: Score 0 - 3: 2.5% MACE over next 6 weeks - Discharge Home Score 4 - 6: 20.3% MACE over next 6 weeks - Admit for Clinical Observation Score 7 - 10: 72.7% MACE over next 6 weeks - Early Invasive Strategies Radiology/Procedures: Radiology/Procedures: CT head without contrast: Reason for examination: Fell with left-sided head injury. Chest and shoulder pain and back pain. Helical images were obtained through the brain with no contrast administered. R econstruction was performed in sagittal and coronal planes. Ventricular systems are symmetric and not abnormally dilated considering patient's advanced age and generalized cerebral atrophy. No midline shift is seen. There are some patchy deep white matter changes in the frontal lobes. No acute infarct, mass, hemorrhage or edema seen. No abnormalities of seen at the orbits. The paranasal sinuses and mastoid air cells are clear. No acute skull abnormality is seen. IMPRESSION: Cerebral atrophy with some microvascular ischemic changes in the frontal lobes. No acute intracranial abnormality evident. CT cervical spine without contrast: Helical images were obtained through the cervical spine from skull base through the thoracic apices with no contrast administered. Reconstruction was performed in sagittal and coronal planes. C1 ring is intact. The odontoid process appears to be intact and normally centered between the lateral masses of C1. The cervical vertebral bodies are normally aligned anteriorly and posteriorly. No acute fracture or subluxation is seen. The intervertebral discs are fairly well-maintained. Prevertebral soft tissues are normal. No spinal stenosis is evident. IMPRESSION: No acute abnormality evident in the cervical spine. CT chest, abdomen pelvis without contrast: Helical images were obtained through the chest, abdomen and pelvis with no intravenous or oral contrast administered. Reconstruction was performed in sagittal and coronal planes. No abnormality seen at the thyroid gland. The trachea and mainstem bronchi show no intraluminal lesions. No abnormality seen at the esophagus. The thoracic aorta is normal in course and caliber. The heart size is normal with no pericardial effusion evident. There are small calcified granuloma at the right hilum. There appear to be mild emphysematous changes. There is some linear stranding in the left lingula which may reflect some atelectasis. There appears 2 be some mild pleural thickening in the right lower lobe posterior laterally. No pleural effusions or pneumothorax are seen. No acute bony abnormalities are seen in the thorax. The liver shows air in the biliary tree down to the pancreatic head. Gallbladder surgically absent. No abnormality seen at the spleen, adrenal glands or pancreas. The abdominal aorta and inferior vena cava show no acute abnormality. There is a large amount of fecal material in the colon but no evidence of diverticulosis or diverticulitis or colitis. The small intestinal tract shows no abnormal dilatation, wall thickening or obstruction. No abnormality seen at the stomach or duodenum. There is a small 2.3 cm cyst at the upper pole of the left kidney. There is a small nonobstructing calculus in the lower pole of the left kidney. No hydronephrosis or obstructive uropathy is evident. No abnormality seen at the bladder or vaginal cuff. No free fluid or free air s een in the abdomen or pelvis. There is a mild 4 mm anterolisthesis of L4 on L5 and a 3 mm retrolisthesis of L5 on S1. The intervertebral discs at these levels are fairly well-maintained. There is however degenerative spondylosis with vacuum disc phenomena at the T9-T10, T11-12 and T12-L1 disc levels. No acute fracture is seen in the lumbar spine or pelvis. IMPRESSION: Mild emphysematous changes in the lung gomez bilaterally. Linear stranding consistent with atelectasis in the left lingula. Air in the biliary tree down to the pancreatic head. 2.3 cm cyst in the upper pole of the left kidney. Small nonobstructing calculus in the lower pole of the left kidney. 4 mm anterolisthesis of L4 on L5. 3 mm retrolisthesis of L5 on S1. No acute fracture in the thoracic spine, lumbar spine or pelvis.[] Course & Med Decision Making: Course & Med Decision Making Pertinent Labs and Imaging studies reviewed. (See chart for details) . The biliary tree on repeat examination she still has no tenderness in the right upper quadrant and is status post cholecystectomy. Has normal lipase and LFTs. Discussed return precautions for right upper quadrant pain or worsening fevers. [] Dragon Disclaimer: Dragon Disclaimer: This electronic medical record was generated, in whole or in part, using a voice recognition dictation system. Departure Departure Impression: Primary Impression: Fall Additional Impression: UTI (urinary tract infection) Disposition: 01 DC HOME SELF CARE/HOMELESS Condition: STABLE Referrals: Rosalio POLANCO MD (PCP) Patient Instructions: Fall Prevention and Home Safety Scripts Nitrofurantoin Monohyd/M-Cryst (MACROBID 100 MG CAPSULE) 100 Mg Capsule 1 CAP PO BID for antibiotic for 5 Days, #10 CAP 0 Refills Prov: RADHA GAMINO MD 05/06/20 Problem Qualifiers RADHA GAMINO MD May 06, 2020 19:48
[2020-05-06 20:48] LABS: BASO % 1 % (0-3); EOS # 0.1 x10^3/uL (0.0-0.7); EOS % 2 % (0-3); HEMATOCRIT 34.4 % (36.0-47.0); HEMOGLOBIN 11.4 g/dL (12.0-15.5); LYMPH # 0.9 x10^3/uL (1.0-4.8); LYMPH % 26 % (24-48); MEAN CORPUSCULAR HEMOGLOBIN 28 pg (25-35); MEAN CORPUSCULAR HGB CONC 33 g/dL (31-37); MEAN CORPUSCULAR VOLUME 84 fL (79-100); MONO # 0.3 x10^3/uL (0.0-1.1); MONO % 9 % (0-9); NEUT # 2.3 x10^3/uL (1.8-7.7); NEUT % 62 % (31-73); PLATELET COUNT 196 x10^3/uL (140-400); RED CELL DISTRIBUTION WIDTH 16.1 % (11.5-14.5); WHITE BLOOD COUNT 3.6 x10^3/uL (4.0-11.0)
[2020-05-06 21:00] LABS: CALCIUM 9.7 mg/dL (8.5-10.1); CREATININE 0.8 mg/dL (0.6-1.0); POTASSIUM 4.4 mmol/L (3.5-5.1)
[2020-05-06 21:06] LABS: ALBUMIN 2.9 g/dL (3.4-5.0); ALBUMIN/GLOBULIN RATIO 0.9 (1.0-1.7); TOTAL BILIRUBIN 0.5 mg/dL (0.2-1.0); TOTAL PROTEIN 6.3 g/dL (6.4-8.2)
--- NOTE | 2020-05-06 21:08 | RAD ---
CT head without contrast: Reason for examination: Fell with left-sided head injury. Chest and shoulder pain and back pain. Helical images were obtained through the brain with no contrast administered. Reconstruction was perf ormed in sagittal and coronal planes. Ventricular systems are symmetric and not abnormally dilated considering patient's advanced age and g eneralized cerebral atrophy. No midline shift is seen. There are some patchy deep white matter change s in the frontal lobes. No acute infarct, mass, hemorrhage or edema seen. No abnormalities of seen at the orbits. The paranasal sinuses and mastoid air cells are clear. No acute skull abnormality is see n. IMPRESSION: Cerebral atrophy with some microvascular ischemic changes in the frontal lobes. No acute intracranial abnormality evident. CT cervical spine without contrast: Helical images were obtained through the cervical spine from skull base through the thoracic apices w ith no contrast administered. Reconstruction was performed in sagittal and coronal planes. C1 ring is intact. The odontoid process appears to be intact and normally centered between the latera l masses of C1. The cervical vertebral bodies are normally aligned anteriorly and posteriorly. No acu te fracture or subluxation is seen. The intervertebral discs are fairly well-maintained. Prevertebral soft tissues are normal. No spinal stenosis is evident. IMPRESSION: No acute abnormality evident in the cervical spine. CT chest, abdomen pelvis without contrast: Helical images were obtained through the chest, abdomen and pelvis with no intravenous or oral contra st administered. Reconstruction was performed in sagittal and coronal planes. No abnormality seen at the thyroid gland. The trachea and mainstem bronchi show no intraluminal lesio ns. No abnormality seen at the esophagus. The thoracic aorta is normal in course and caliber. The hea rt size is normal with no pericardial effusion evident. There are small calcified granuloma at the ri ght hilum. There appear to be mild emphysematous changes. There is some linear stranding in the left lingula which may reflect some atelectasis. There appears 2 be some mild pleural thickening in the ri ght lower lobe posterior laterally. No pleural effusions or pneumothorax are seen. No acute bony abno rmalities are seen in the thorax. The liver shows air in the biliary tree down to the pancreatic head. Gallbladder surgically absent. N o abnormality seen at the spleen, adrenal glands or pancreas. The abdominal aorta and inferior vena c jessica show no acute abnormality. There is a large amount of fecal material in the colon but no evidence of diverticulosis or diverticulitis or colitis. The small intestinal tract shows no abnormal dilatat ion, wall thickening or obstruction. No abnormality seen at the stomach or duodenum. There is a small 2.3 cm cyst at the upper pole of the left kidney. There is a small nonobstructing calculus in the lo wer pole of the left kidney. No hydronephrosis or obstructive uropathy is evident. No abnormality seen at the bladder or vaginal cuff. No free fluid or free air seen in the abdomen or pelvis. There is a mild 4 mm anterolisthesis of L4 on L5 and a 3 mm retrolisthesis of L5 on S1. The i ntervertebral discs at these levels are fairly well-maintained. There is however degenerative spondyl osis with vacuum disc phenomena at the T9-T10, T11-12 and T12-L1 disc levels. No acute fracture is se en in the lumbar spine or pelvis. IMPRESSION: Mild emphysematous changes in the lung gomez bilaterally. Linear stranding consistent with atelectasis in the left lingula. Air in the biliary tree down to the pancreatic head. 2.3 cm cyst in the upper pole of the left kidney. Small nonobstructing calculus in the lower pole of the left kidney. 4 mm anterolisthesis of L4 on L5. 3 mm retrolisthesis of L5 on S1. No acute fracture in the thoracic spine, lumbar spine or pelvis. Exposure: One or more of the following individualized dose reduction techniques were utilized for thi s examination: 1. Automated exposure control 2. Adjustment of the mA and/or kV according to patient size 3. Use of iterative reconstruction technique. Electronically signed by: Lillie Sweeney MD (05/06/2020 9:06 PM) CHUCKIE
[2020-05-06 21:53] LABS: BILIRUBIN,URINE NEGATIVE (NEG); CLARITY,URINE CLEAR; COLOR,URINE YELLOW; NITRITE,URINE NEGATIVE (NEG); PH,URINE 5.5 (<5.0-8.0); PROTEIN,URINE NEGATIVE (NEG-TRACE); UROBILINOGEN,URINE 0.2 mg/dL (0.2 mg/dL)
[2020-05-06 22:05] LABS: BACTERIA,URINE 0 /HPF (0-FEW)
[2020-05-06] MEDS ORDERED: NITR100C62 PO (22:17)
[2020-05-06 22:25] VITALS: BP 134/58
[2020-05-06] MEDS ORDERED: NITROFURANTOIN MONOHYD/M-CRYST 100 MG CAPSULE. PO ONE (23:00)
== END 2020-05-06 22:45 | disposition home or self-care (01) ==
LOC: ER 19:22
DX: G89.11 Acute pain due to trauma (principal); M25.512 Pain in left shoulder; N39.0 Urinary tract infection, site not specified; I50.9 Heart failure, unspecified; Z87.891 Personal history of nicotine dependence; Z90.49 Acquired absence of other specified parts of digestive tract; Z90.710 Acquired absence of both cervix and uterus; Z90.89 Acquired absence of other organs; Z98.890 Other specified postprocedural states; Z85.9 Personal history of malignant neoplasm, unspecified; W18.39XA Other fall on same level, initial encounter; Y93.89 Activity, other specified; Y92.89 Other specified places as the place of occurrence of the external cause; Y99.8 Other external cause status
CPT/HCPCS: 36415; 70450; 71250; 72125; 74176; 80053; 81001; 83605; 83880; 84484; 85025; 87086; 99285; P9612

== ENCOUNTER → 2021-03-24 | Outpatient (CLI) | payer MEDICARE, BC ==
[~2021-03-24] MED LIST changes: +METH-570 PO; +METH-572 PO; -METH10TA2 PO; -METH5TAB2 PO; +NITR100C62 PO
--- NOTE | 2021-03-24 09:35 | RAD ---
Exam Date: 03/24/2021 8:[address] HEAD/BRAIN WO Indication: Reason: / Spl. Instructions: / History: . TECHNIQUE: Head CT was performed without intravenous contrast. One or more of the following dose re duction techniques were utilized: *Automated exposure control (AEC) *Adjustment of mA and/or kV according to patient size *Use of iterative reconstruction technique *CT scan done according to ALARA, or ALARA/IMAGE GENTLY COMPARISON: May 06, 2020 FINDINGS: The ventricles and sulci are prominent consistent with cerebral volume loss. Patchy ill-defined low attenuation areas in the subcortical and periventricular white matter bilaterally are consistent with microvascular disease. There is no evidence of acute intracranial hemorrhage, extra-axial collecti on, mass effect, midline shift, or acute territorial infarct. No lesion of the skull base or the calv arium is seen. The visualized paranasal sinuses, mastoid air cells and orbits are normal in appearanc e. IMPRESSION: No evidence for acute intracranial abnormality. Volume loss and microvascular disease. Electronically signed by: Juno Perez MD (03/24/2021 9:32 AM) [id number]
== END ==
LOC: CT 08:42
PROVIDERS: ATTEND Family Medicine
DX: H53.2 Diplopia (principal)
CPT/HCPCS: 70450